=== PATIENT | female | born 1960 | race African-American/Black ===

== ENCOUNTER 2017-01-09 14:37 | Emergency (ER) | payer MEDICARE ==
[2017-01-09 14:42] VITALS: BP 179/70
--- NOTE | 2017-01-09 18:07 | ER Document Report ---
HPI - HPI Patient complains to provider of: right knee pain Onset: Other - 2 weeks Quality of pain: Achy Severity: Severe Pain Level: 4 Context: Patient presents to the emergency department with complaints of right knee hurting. She reports both sides of her knee. patient denies trauma. reports symptoms started 2 weeks ago when she kept visiting her sister in the hospital, [facility]. Denies f/n/v/d. Reports pain achy all the time. Reports hx of diabetes, neuropathy and charcot foot. Associated Symptoms: None Exacerbated by: Denies Relieved by: Denies Similar symptoms previously: No Recently seen / treated by doctor: No - REPRODUCTIVE Reproductive: DENIES: : - DERM Skin Color: Normal Past Medical History - General Information source: Patient Last Menstrual Period: menopause - Social History Smoking Status: Unknown if Ever Smoked Cigarette use (# per day): No Frequency of alcohol use: None Drug Abuse: None Lives with: Family Family History: None Patient has suicidal ideation: No Patient has homicidal ideation: No - Past Medical History Cardiac Medical History: Reports: Hx Hypertension Denies: Hx Heart Attack Pulmonary Medical History: Denies: Hx Asthma, Hx COPD Neurological Medical History: Denies: Hx Cerebrovascular Accident, Hx Seizures Endocrine Medical History: Reports: Hx Diabetes Mellitus Type 1, Hx Diabetes Mellitus Type 2 Renal/ Medical History: Denies: Hx Peritoneal Dialysis Musculoskeltal Medical History: Reports Other - charcot foot Past Surgical History: Reports: Hx Section Vertical Provider Document - CONSTITUTIONAL Agree With Documented VS: Yes Exam Limitations: No Limitations General Appearance: WD/WN, Mild Distress - winces when right knee laterally palpated - INFECTION CONTROL TRAVEL OUTSIDE OF THE [place] IN LAST 30 DAYS: No - HEENT HEENT: Atraumatic, Normocephalic - NECK Neck: Normal Inspection, Supple - RESPIRATORY Respiratory: Breath Sounds Normal O2 Sat by Pulse Oximetry: 98 - CARDIOVASCULAR Cardiovascular: Regular Rate - MUSCULOSKELETAL/EXTREMETIES Musculoskeletal/Extremeties: MAEW, FROM, Tender - right lateral, anterior knee ttp, no obvious deformity, no erythema/no warmth. reports chronic lower leg pain and foot pain due to diabetes and charcot foot Course - Re-evaluation Re-evalutation: 01/09/17 Knee x-rays notes osteoarthritis. Patient updated on x-ray. She verbalized understanding. She was instructed on ibuprofen or Aleve for pain. Follow up with her pcp. She verbalized understanding. Patient was escorted out to her car ambulates without problems. - Vital Signs Vital signs: Temp Pulse Resp BP Pulse Ox 99.2 F 98 18 179/70 H 98 01/09/17 14:41 01/09/17 14:41 01/09/17 14:41 01/09/17 14:41 01/09/17 14:41 - Diagnostic Test Radiology reviewed: Image reviewed, Reports reviewed - EXAM DESCRIPTION: KNEE RIGHT 4 VIEWS COMPLETED DATE/TIME: 01/09/2017 6:43 pm REASON FOR STUDY: pain COMPARISON: None. NUMBER OF VIEWS: Four views. TECHNIQUE: AP, lateral, and both oblique radiographic images acquired of the right knee. LIMITATIONS: None. FINDINGS: MINERALIZATION: Normal. BONES: No acute fracture or dislocation. No worrisome bone lesions. JOINT: Mild tricompartmental osteoarthritis. No significant joint effusion. SOFT TISSUES: Vascular calcifications. No soft tissue swelling. No radio-opaque foreign body. OTHER: No other significant finding. TECHNICAL DOCUMENTATION: JOB ID: [id number]- All Rights Reserved RAD/KNEE RIGHT 4 VIEWS IMPRESSION: MILD TRICOMPARTMENTAL OSTEOARTHRITIS. NO RADIOGRAPHIC EVIDENCE OF ACUTE INJURY Discharge - Discharge Clinical Impression: Right knee pain, Osteoarthritis Condition: Stable Disposition: HOME, SELF-CARE Instructions: Ice & Elevation ([facility]), Osteoarthritis ([facility]), Use of Over-The- Counter Ibuprofen ([facility]) Additional Instructions: *You have been evaluated for right knee pain, osteoarthritis, elevated blood pressure reading *Rest *Follow up with your primary care provider for recheck within one week *Take ibuprofen as indicated *Return to ED for worsening condition, changes, needs Monitor your blood pressure. Your blood pressure was elevated today. This may be because you were anxious, in pain or because you need medication. It is important to follow up with your primary care provider for full evaluation. Forms: Elevated Blood Pressure Referrals: LOCALMD,NO [Primary Care Provider] - Follow up as needed
[2017-01-09] MEDS ORDERED: IBUPROFEN 800 MG TABLET PO ONE (18:08)
== END 2017-01-09 19:20 | disposition home or self-care (01) ==
LOC: ER 14:37
DX: M25.561 Pain in right knee (principal); M17.9 Osteoarthritis of knee, unspecified; E11.9 Type 2 diabetes mellitus without complications; G90.09 Other idiopathic peripheral autonomic neuropathy; I10 Essential (primary) hypertension; G89.29 Other chronic pain; M79.673 Pain in unspecified foot
CPT/HCPCS: 99283; 73564; A9270

== ENCOUNTER 2017-11-26 11:09 | Emergency (ER) | payer MEDICARE ==
[2017-11-26 11:28] VITALS: BP 172/73
--- NOTE | 2017-11-26 11:58 | ER Document Report ---
ED General - General Chief Complaint: Puncture Wound to Foot Stated Complaint: RIGHT FOOT INJURY Time Seen by Provider: 11/26/17 11:57 Mode of Arrival: Ambulatory Information source: Patient Notes: 57-year-old female diabetic presents with a puncture wound to her foot on the right side with the nail was kobe proximally 4 days ago. Patient denies any other pain notes her family members made her come in today tetanus is not up-to- date TRAVEL OUTSIDE OF THE [place] IN LAST 30 DAYS: No - HPI Onset: Last week Onset/Duration: Persistent Quality of pain: No pain Severity: Mild Pain Level: Denies Associated symptoms: Other Exacerbated by: Denies Relieved by: Denies Similar symptoms previously: No Recently seen / treated by doctor: No - Related Data Allergies/Adverse Reactions: No Known Allergies Allergy (Verified 11/26/17 11:10) Past Medical History - Social History Smoking Status: Never Smoker Cigarette use (# per day): No Chew tobacco use (# tins/day): No Smoking Education Provided: No Frequency of alcohol use: None Drug Abuse: None Family History: None Patient has suicidal ideation: No Patient has homicidal ideation: No - Past Medical History Cardiac Medical History: Reports: Hx Hypertension Denies: Hx Heart Attack Pulmonary Medical History: Denies: Hx Asthma, Hx COPD Neurological Medical History: Denies: Hx Cerebrovascular Accident, Hx Seizures Endocrine Medical History: Reports: Hx Diabetes Mellitus Type 1, Hx Diabetes Mellitus Type 2 Renal/ Medical History: Denies: Hx Peritoneal Dialysis Past Surgical History: Reports: Hx Section - x4 Review of Systems - Review of Systems Notes: REVIEW OF SYSTEMS: CONSTITUTIONAL : Denies fever, chills, or sweats. Denies recent illness. EENT: Denies eye, ear, throat, or mouth pain or symptoms. Denies nasal or sinus congestion or discharge. Denies throat, tongue, or mouth swelling or difficulty swallowing. CARDIOVASCULAR: Denies chest pain. Denies palpitations or racing or irregular heart beat. Denies ankle edema. RESPIRATORY: Denies cough, cold, or chest congestion. Denies shortness of breath, difficulty breathing, or wheezing. GASTROINTESTINAL: Denies abdominal pain or distention. Denies nausea, vomiting , or diarrhea. Denies blood in vomitus, stools, or per rectum. Denies black, tarry stools. Denies constipation. GENITOURINARY: Denies difficulty urinating, painful urination, burning, frequency, blood in urine, or discharge. FEMALE GENITOURINARY: Denies vaginal bleeding, heavy or abnormal periods, irregular periods. Denies vaginal discharge or odor. MUSCULOSKELETAL: Denies back or neck pain or stiffness. Denies joint pain or swelling. SKIN: Puncture wound right foot HEMATOLOGIC : Denies easy bruising or bleeding. LYMPHATIC: Denies swollen, enlarged glands. NEUROLOGICAL: Denies confusion or altered mental status. Denies passing out or loss of consciousness. Denies dizziness or lightheadedness. Denies headache. Denies weakness or paralysis or loss of use of either side. Denies problems with gait or speech. Denies sensory loss, numbness, or tingling. Denies seizures. PSYCHIATRIC: Denies anxiety or stress. Denies depression, suicidal ideation, or homicidal ideation. ALL OTHER SYSTEMS REVIEWED AND NEGATIVE. PHYSICAL EXAMINATION: GENERAL: Well-appearing, well-nourished and in no acute distress. HEAD: Atraumatic, normocephalic. EYES: Pupils equal round and reactive to light, extraocular movements intact, conjunctiva are normal. ENT: Nares patent, oropharynx clear without exudates. Moist mucous membranes. NECK: Normal range of motion, supple without lymphadenopathy LUNGS: Breath sounds clear to auscultation bilaterally and equal. No wheezes rales or rhonchi. HEART: Regular rate and rhythm without murmurs ABDOMEN: Soft, nontender, nondistended abdomen. No guarding, no rebound. No masses appreciated. Female : deferred Musculoskeletal: Normal range of motion, no pitting or edema. No cyanosis. NEUROLOGICAL: Cranial nerves grossly intact. Normal speech, normal gait. Normal sensory, motor exams PSYCH: Normal mood, normal affect. SKIN: Healed puncture wound of the right sole midfoot nontender no drainage no erythema Dictation was performed using [employer] voice recognition software Physical Exam - Vital signs Vitals: Temp Pulse Resp BP Pulse Ox 98.8 F 81 19 172/73 H 98 11/26/17 11:27 11/26/17 11:27 11/26/17 11:27 11/26/17 11:27 11/26/17 11:27 Course - Re-evaluation Re-evalutation: 11/26/17 15:45 The puncture occurred approximately 4 days ago, there is no signs of infection at this time, her tetanus will be updated, I have very low suspicion for infectious process given that it looks well and is healing well but given that she is a diabetic prophylactic antibiotics have been started Patient will be given very strict return precautions she states she understands and will return imaging is not appropriate at this time After performing a Medical Screening Examination, I estimate there is LOW risk for OPEN FRACTURE, COMPARTMENT SYNDROME, TENDON RUPTURE, ACUTE NEUROVASCULAR INJURY, or RETAINED FOREIGN BODY, thus I consider the discharge disposition reasonable. Also, there is no evidence or peritonitis, sepsis, or toxicity. I have reevaluated this patient multiple times and no significant life threatening changes are noted. The patient and I have discussed the diagnosis and risks, and we agree with discharging home with close follow-up with the understanding that symptoms and presentations can change. We also discussed returning to the Emergency Department immediately if new or worsening symptoms occur. We have discussed the symptoms which are most concerning (e.g., changing or worsening pain, fever, numbness, weakness, cool or painful digits) that necessitate immediate return. - Vital Signs Vital signs: Temp Pulse Resp BP Pulse Ox 98.8 F 81 19 172/73 H 98 11/26/17 11:27 11/26/17 11:27 11/26/17 11:27 11/26/17 11:27 11/26/17 11:27 Discharge - Discharge Clinical Impression: Diabetic foot infection Nail wound of foot Qualifiers: Encounter type: initial encounter Laterality: right Qualified Code(s): S91.331A - Puncture wound without foreign body, right foot, initial encounter HTN (hypertension) Qualifiers: Hypertension type: unspecified Qualified Code(s): I10 - Essential (primary) hypertension Condition: Stable Disposition: HOME, SELF-CARE Instructions: Laceration Care ([facility]), Tetanus Immunization Given ([facility]) Additional Instructions: Please keep a very close eye on the wound, if symptoms are worsening you must return immediately for further care Prescriptions: Ciprofloxacin HCl [Cipro 500 mg Tablet] 500 mg PO BID #20 tablet Referrals: BENNETT SUE MD [Primary Care Provider] - Follow up as needed
[2017-11-26] MEDS ORDERED: DIPH/PERTUSS(ACELL)/TETANUS VAC/PF 0.5 ML SYR (>=10YO) IM ONE (12:04)
== END 2017-11-26 12:17 | disposition home or self-care (01) ==
LOC: ER 11:09
DX: S91.331A Puncture wound without foreign body, right foot, initial encounter (principal); W45.0XXA Nail entering through skin, initial encounter; E11.628 Type 2 diabetes mellitus with other skin complications; L08.9 Local infection of the skin and subcutaneous tissue, unspecified; I10 Essential (primary) hypertension; Z23 Encounter for immunization
CPT/HCPCS: 90471; 90715; 99283

== ENCOUNTER 2018-04-25 12:54 | Emergency (ER) | payer MEDICARE ==
[2018-04-25 13:01] VITALS: BP 187/85
--- NOTE | 2018-04-25 13:33 | ER Document Report ---
ED Extremity Problem, Lower - General Chief Complaint: Foot Pain Stated Complaint: FOOT PAIN Time Seen by Provider: 04/25/18 13:23 Mode of Arrival: Ambulatory Information source: Patient Notes: Chief complaint: Right foot pain History of complain:( obtained from----patient) 58 years old female with history of callus over the right foot for a period of one year, presents today with pain. She was on pain medication but she stopped taking it 3 months ago. Because she does not want to be addicted to it. The pain is increasing in intensity particularly on walking. She also diabetic and wear diabetic shoe on and off not continuously. Denies any fever chills or other constitutional symptoms Onset: Gradual Duration: One year Severity: Moderate Quality: Sharp Context: Diabetic foot Exacerbating factor and relieving factors: REVIEW OF SYSTEMS: CONSTITUTIONAL : Denies fever, chills, or sweats. Denies recent illness. EENT: Denies eye, ear, throat, or mouth pain or symptoms. Denies nasal or sinus congestion or discharge. Denies throat, tongue, or mouth swelling or difficulty swallowing. CARDIOVASCULAR: Denies chest pain. Denies palpitations or racing or irregular heart beat. Denies ankle edema. RESPIRATORY: Denies cough, cold, or chest congestion. Denies shortness of breath, difficulty breathing, or wheezing. GASTROINTESTINAL: Denies distention. Denies nausea, vomiting, or diarrhea. Denies blood in vomitus, stools, or per rectum. Denies black, tarry stools. Denies constipation. GENITOURINARY: Denies difficulty urinating, painful urination, burning, frequency, blood in urine, or discharge. FEMALE GENITOURINARY: Denies vaginal bleeding, heavy or abnormal periods, irregular periods. Denies vaginal discharge or odor. MUSCULOSKELETAL: Denies back or neck pain or stiffness. Denies joint pain or swelling. SKIN: Denies rash, lesions or sores. HEMATOLOGIC : Denies easy bruising or bleeding. LYMPHATIC: Denies swollen, enlarged glands. NEUROLOGICAL: Denies confusion or altered mental status. Denies passing out or loss of consciousness. Denies dizziness or lightheadedness. Denies headache. Denies weakness or paralysis or loss of use of either side. Denies problems with gait or speech. Denies sensory loss, numbness, or tingling. Denies seizures. PSYCHIATRIC: Denies anxiety or stress. Denies depression, suicidal ideation, or homicidal ideation. ALL OTHER SYSTEMS REVIEWED AND NEGATIVE. PHYSICAL EXAMINATION: GENERAL: Well-appearing, well-nourished and in no acute distress. HEAD: Atraumatic, normocephalic. EYES: Pupils equal round and reactive to light, extraocular movements intact, conjunctiva are normal. ENT: Nares patent, oropharynx clear without exudates. Moist mucous membranes. NECK: Normal range of motion, supple without lymphadenopathy LUNGS: Breath sounds clear to auscultation bilaterally and equal. No wheezes rales or rhonchi. HEART: Regular rate and rhythm without murmurs Musculoskeletal: Right foot middle of the sore-has a 3 x 4 cm blackish discoloration with swelling which is hard and tender to touch. No fluctuant mass. It is a callus NEUROLOGICAL: Cranial nerves grossly intact. Normal speech, normal gait. Normal sensory, motor exams PSYCH: Normal mood, normal affect. SKIN: Warm, Dry, normal turgor, no rashes or lesions noted. Dictation was performed using [employer] voice recognition software TRAVEL OUTSIDE OF THE [place] IN LAST 30 DAYS: No - HPI Notes: Dictated - Related Data Allergies/Adverse Reactions: No Known Allergies Allergy (Verified 04/25/18 13:19) Past Medical History - Social History Smoking Status: Current Every Day Smoker Chew tobacco use (# tins/day): No Frequency of alcohol use: None Drug Abuse: None Family History: None, Reviewed & Not Pertinent Patient has suicidal ideation: No Patient has homicidal ideation: No - Past Medical History Cardiac Medical History: Reports: Hx Hypertension Denies: Hx Heart Attack Pulmonary Medical History: Denies: Hx Asthma, Hx COPD Neurological Medical History: Denies: Hx Cerebrovascular Accident, Hx Seizures Endocrine Medical History: Reports: Hx Diabetes Mellitus Type 1, Hx Diabetes Mellitus Type 2 Renal/ Medical History: Denies: Hx Peritoneal Dialysis Past Surgical History: Reports: Hx Section - x4 Review of Systems - Review of Systems Notes: Dictated Physical Exam - Vital signs Vitals: Temp Pulse Resp BP Pulse Ox 98.8 F 102 H 16 187/85 H 99 04/25/18 12:59 04/25/18 12:59 04/25/18 12:59 04/25/18 12:59 04/25/18 12:59 - Notes Notes: Dictated Course - Re-evaluation Re-evalutation: 04/25/18 13:31 Patient was explained this lesion has to be removed by a foot doctor. - Vital Signs Vital signs: Temp Pulse Resp BP Pulse Ox 98.8 F 102 H 16 187/85 H 99 04/25/18 12:59 04/25/18 12:59 04/25/18 12:59 04/25/18 12:59 04/25/18 12:59 Discharge - Discharge Clinical Impression: Callus of foot Condition: Fair Disposition: HOME, SELF-CARE Instructions: Pain Management Prescriptions: Diclofenac Sodium [Diclofenac Sodium ER] 100 mg PO DAILY #20 tab.er.24h Referrals: BENNETT SUE MD [Primary Care Provider] - Follow up as needed
== END 2018-04-25 13:45 | disposition home or self-care (01) ==
LOC: ER 12:54
DX: L84 Corns and callosities (principal); M79.671 Pain in right foot; E11.9 Type 2 diabetes mellitus without complications; F17.200 Nicotine dependence, unspecified, uncomplicated; I10 Essential (primary) hypertension
CPT/HCPCS: 99283

== ENCOUNTER → 2018-07-02 | Outpatient (CLI) | payer MEDICARE ==
--- NOTE | 2018-07-04 09:11 | XCELERA REPORT ---
[address] [address] Lower Extremity Arterial Evaluation Name: ALMAZ ALVARADO Age: 58 yrs Gender: Female : 1960 Patient Status: Outpatient Patient Location: [facility] Study Date: 07/02/2018 01:30 PM Procedure: A color flow and duplex scan of the lower extremity arteries was performed bilaterally with velocity and waveform anaylsis. Ankle brachial indicies performed. Reason For Study: ULCER Ordering Physician: CYNTHIA INXON Performed By: Kanika Solitario Measurements and Calculations Right Left POWDER OPERATOR PSV 186.6 149.3 cm/sec Prox PFA PSV -105.3 -108.1cm/sec Prox Pop A PSV 148.5 113.1 cm/sec Dist LUIS ENRIQUE PSV 138.3 139.0 cm/sec Prox ARCHITECT INTERN PSV 56.2 cm/sec Mid ARCHITECT INTERN PSV 38.8 cm/sec Dist ARCHITECT INTERN PSV 65.6 cm/sec Dist Esequiel A 65.6 cm/sec PSV Abelardo Pedis PSV 237.6 150.8 cm/sec Right Side Arterial Evaluation Normal velocity and triphasic waveforms noted from the Common Femoral artery to the Popliteal. Biphasic with increased velocity, spectral broadening,ration of 1.6 in the Anterior tibial. Occluded Posterior Tibial artery. . 0-19 % stenosis in the Anterior Tibial,Occluded Posterior Tibial artery. . Ankle Brachial index 0.93. With findings significant for atherosclerosis, mild hemodynamic changes, at rest. Left Side Arterial Evaluation Normal velocity and triphasic waveforms noted in the Common Femoral artery. Biphasic in Femoral. to the infrageniculate vessels. 0-19% stenosis at the Femoral artery. Ankle Brachial index is 1.00, in Dorsalis Pedis. Interpretation Summary Mild hemodynamically significant lesions in the bilateral lower extremities, on duplex imaging, at rest. With findings significant for atherosclerosis, especially on the right, mild hemodynamic changes, at rest. : CYNTHIA NIXON > Luis Hart
== END ==
LOC: SP 12:43
PROVIDERS: ATTEND Preventive Medicine Undersea and Hyperbaric Medicine
DX: L97.422 Non-pressure chronic ulcer of left heel and midfoot with fat layer exposed (principal); L97.412 Non-pressure chronic ulcer of right heel and midfoot with fat layer exposed
CPT/HCPCS: 93922; 93925

== ENCOUNTER 2018-08-26 07:37 | Emergency (ER) | payer MEDICARE ==
--- NOTE | 2018-08-26 07:59 | ER Document Report ---
ED General - General Chief Complaint: Abdominal Pain Stated Complaint: ABDOMINAL PAIN Time Seen by Provider: 08/26/18 07:58 Notes: Patient is a 58-year-old female that presents to the emergency department for chief complaint of headache and epigastric pain. Patient reports that this started yesterday, is a left-sided headache, with associated nausea but no vomiting. 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 She has had associated epigastric pain, she states this typically comes on when she has a headache. She states it is not quite a migraine. She currently rates her headache as an 8 out of 10, on the left side of her head describes as an aching throbbing sensation. Denies any head injury. She reports that she has had loss of vision in her left eye for approximately 1 year without recent changes. Denies any numbnes, tingling or weakness in her extremities. Past Medical History: Diabetes mellitus, hypertension, hyperlipidemia Past Surgical History: Foot surgery, eye surgery Social History: Denies tobacco, alcohol or drug use Family History: Reviewed and noncontributory for presenting illness Allergies: Reviewed, see documented allergy list. REVIEW OF SYSTEMS: Other than noted above, the 12 point review of systems was reviewed with the patient and were negative, all pertinent findings are included in the HPI. PHYSICAL EXAMINATION: Vital signs reviewed, nursing noted reviewed. GENERAL: Well-appearing, well-nourished and in no acute distress. HEAD: Atraumatic, normocephalic. Non-tender, no pulsatile lesion or tendernes over the temporal arteries. EYES: Eyes appear normal, extraocular movements intact, sclera anicteric, conjunctiva are normal. PERRLA, on fundoscopic exam, patient does have lack of red reflex on the left. Vision decreased with the Left eye (chronic per patient) ENT: nares patent, oropharynx clear without exudates. Moist mucous membranes. NECK: Normal range of motion, supple without lymphadenopathy LUNGS: Breath sounds clear to auscultation bilaterally and equal. No wheezes rales or rhonchi. HEART: Regular rate and rhythm without murmurs ABDOMEN: Soft, mild epigastric tenderness with palpation, normoactive bowel sounds. No rebound, guarding, or rigidity. No masses appreciated. EXTREMITIES: Nontender, good range of motion, trace bilateral pedal edema. NEUROLOGICAL: No focal neurological deficits. Moves all extremities spontaneously Motor and sensory grossly intact on exam. PSYCH: Flat affect, poor eye contact, but does answer questions appropriately SKIN: Warm, Dry, normal turgor, no rashes or lesions noted on exposed skin TRAVEL OUTSIDE OF THE [place] IN LAST 30 DAYS: No - Related Data Allergies/Adverse Reactions: No Known Allergies Allergy (Verified 08/26/18 08:14) Past Medical History - Social History Smoking Status: Never Smoker Family History: None, Reviewed & Not Pertinent - Past Medical History Cardiac Medical History: Reports: Hx Hypertension Denies: Hx Heart Attack Pulmonary Medical History: Denies: Hx Asthma, Hx COPD Neurological Medical History: Denies: Hx Cerebrovascular Accident, Hx Seizures Endocrine Medical History: Reports: Hx Diabetes Mellitus Type 1, Hx Diabetes Mellitus Type 2 Renal/ Medical History: Denies: Hx Peritoneal Dialysis Past Surgical History: Reports: Hx Section - x4 Physical Exam - Vital signs Vitals: Temp Pulse Resp BP Pulse Ox 97.3 F 74 18 167/73 H 100 08/26/18 07:42 08/26/18 07:42 08/26/18 07:42 08/26/18 07:42 08/26/18 07:42 Course - Re-evaluation Re-evalutation: Patient seen and examined vital signs reviewed. Laboratory data and imaging were ordered as appropriate for the patient's presenting symptoms and complaint, with consideration of any critical or life threatening conditions that may be associated with their obtained history and exam as noted above. Patient was treated with IVF and reglan and benadryl Results were reviewed when available and demonstrated CT head demonstrated Left vitreous hemorrhage, patient does have history of bilateral victrectomy, I discussed this with the patients Retinal surgeon's office who confirmed that the patient has had significant vitreal hemorrhage due to her diabetic retinopathy and that has been a chronic finding for her, she however has not follow-up with them in about 2 years. The patient denies having any pain in her eye and as noted has had loss of vision in her left eye for about 1 year. The rest of her work-up revealed a mildly elevated ESR and CRP, which does not meet levels concerning for temporal arteritis, and clinically the patient does not have symptoms consistent with that. The patient was re-evaluated and was much improved, symptoms completely resolved. Evaluation was most consistent with headache, nonspecific, patient does have history of migraines and has had similar headaches in the past, I advised she follow-up with her retinal surgeon and with her PCP. She was agreeable. Results were discussed with the patient at this point, after careful consideration I feel that that patient can be discharged from the emergency department, the patient was educated treatments and reasons to return to the emergency department based on their presumed diagnosis as noted above, they were advised to followup with a primary care physician in 2-3 days. Patient was agreeable to plan of care. *Note is created using voice recognition software and may contain spelling, syntax or grammatical errors. Laboratory 08/26/18 08/26/18 08/26/18 08:50 08:50 08:50 WBC 7.5 RBC 4.52 Hgb 12.4 Hct 37.5 MCV 83 MCH 27.3 MCHC 32.9 RDW 13.1 Plt Count 335 Seg Neutrophils % 79.4 H Lymphocytes % 15.1 Monocytes % 3.7 Eosinophils % 0.7 Basophils % 1.1 Absolute Neutrophils 6.0 Absolute Lymphocytes 1.1 Absolute Monocytes 0.3 Absolute Eosinophils 0.1 Absolute Basophils 0.1 ESR 54 H Sodium 141.7 Potassium 3.8 Chloride 101 Carbon Dioxide 31 H Anion Gap 10 BUN 15 Creatinine 0.76 Est GFR ( Amer) > 60 Est GFR (Non-Af Amer) > 60 Glucose 248 H Calcium 9.6 Total Bilirubin 0.6 Direct Bilirubin 0.3 Neonat Total Bilirubin Not Reportable Neonat Direct Bilirubin Not Reportable Neonat Indirect Bili Not Reportable AST 62 H ALT 104 H Alkaline Phosphatase 119 Troponin I < 0.012 C-Reactive Protein 16.9 H Total Protein 8.5 H Albumin 4.3 Lipase 30.0 Urine Color Urine Appearance Urine pH Ur Specific [place] Urine Protein Urine Glucose (UA) Urine Ketones Urine Blood Urine Nitrite Urine Bilirubin Urine Urobilinogen Ur Leukocyte Esterase Urine WBC (Auto) Urine Bacteria (Auto) Squamous Epi Cells Auto Urine Mucus (Auto) Urine Ascorbic Acid 08/26/18 09:50 WBC RBC Hgb Hct MCV MCH MCHC RDW Plt Count Seg Neutrophils % Lymphocytes % Monocytes % Eosinophils % Basophils % Absolute Neutrophils Absolute Lymphocytes Absolute Monocytes Absolute Eosinophils Absolute Basophils ESR Sodium Potassium Chloride Carbon Dioxide Anion Gap BUN Creatinine Est GFR ( Amer) Est GFR (Non-Af Amer) Glucose Calcium Total Bilirubin Direct Bilirubin Neonat Total Bilirubin Neonat Direct Bilirubin Neonat Indirect Bili AST ALT Alkaline Phosphatase Troponin I C-Reactive Protein Total Protein Albumin Lipase Urine Color COLORLESS Urine Appearance CLEAR Urine pH 6.0 Ur Specific [place] 1.005 Urine Protein NEGATIVE Urine Glucose (UA) >=500 H Urine Ketones NEGATIVE Urine Blood NEGATIVE Urine Nitrite NEGATIVE Urine Bilirubin NEGATIVE Urine Urobilinogen NEGATIVE Ur Leukocyte Esterase NEGATIVE Urine WBC (Auto) 1 Urine Bacteria (Auto) 1+ Squamous Epi Cells Auto 3 Urine Mucus (Auto) RARE Urine Ascorbic Acid NEGATIVE Head CT 08/26/18 08:15 IMPRESSION: No CT evidence of acute large territory ischemic change, acute intracranial hemorrhage, mass effect, or midline shift. 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 Recent left eye surgery. Findings discussed with the emergency room attending physician EVIDENCE OF ACUTE STROKE: NO. - Vital Signs Vital signs: Temp Pulse Resp BP Pulse Ox 98.4 F 74 16 142/70 H 100 08/26/18 12:50 08/26/18 12:50 08/26/18 12:50 08/26/18 12:50 08/26/18 12:50 - Laboratory Result Diagrams: 08/26/18 08:50 08/26/18 08:50 Laboratory results interpreted by me: 08/26/18 08/26/18 08/26/18 08:50 08:50 09:50 Seg Neutrophils % 79.4 H ESR 54 H Carbon Dioxide 31 H Glucose 248 H AST 62 H ALT 104 H C-Reactive Protein 16.9 H Total Protein 8.5 H Urine Glucose (UA) >=500 H - EKG Interpretation by Me Additional EKG results interpreted by me: EKG demonstrates sinus rhythm with ventricular rate of 73 bpm, normal axis, QTC 499 ms, T wave inversion in leads I and aVL, no prior for comparison. Discharge - Discharge Clinical Impression: Epigastric abdominal pain Headache Qualifiers: Headache type: unspecified Headache chronicity pattern: acute headache Intractability: not intractable Qualified Code(s): R51 - Headache Condition: Stable Disposition: HOME, SELF-CARE Instructions: Abdominal Pain ([facility]), Headache ([facility]) Additional Instructions: Please follow-up with your retinal surgeon, call for an appointment, otherwise you can also follow-up with your primary care physician, if your symptoms return or worsen, do not hesitate to return to the emergency department for further evaluation and management. Referrals: AMARA SABA MD [Primary Care Provider] - Follow up in 3-5 days
[2018-08-26] MEDS ORDERED: NORMAL SALINE 1000 ML 1,000 ML IV ONE (08:14)
[2018-08-26] MEDS ORDERED: METOCLOPRAMIDE HCL INJ/PF 10 MG/2 ML SDV IV ONE (08:15)
[2018-08-26] MEDS ORDERED: DIPHENHYDRAMINE HCL 50 MG/ML VIAL IV ONE (08:16)
[2018-08-26 09:13] LABS: ABSOLUTE BASOPHILS # (AUTO) 0.1 10^3/uL (0.0-0.2); ABSOLUTE EOSINOPHILS # (AUTO) 0.1 10^3/uL (0.0-0.6); ABSOLUTE LYMPHOCYTES (AUTO) 1.1 10^3/uL (0.5-4.7); ABSOLUTE MONOCYTES (AUTO) 0.3 10^3/uL (0.1-1.4); BASOPHILS % (AUTO) 1.1 % (0-2); EOSINOPHILS % (AUTO) 0.7 % (0-6); HEMATOCRIT 37.5 % (36.0-47.0); HEMOGLOBIN 12.4 g/dL (12.0-15.5); LYMPHOCYTES % (AUTO) 15.1 % (13-45); MEAN CORPUSCULAR HEMOGLOBIN 27.3 pg (27.0-33.4); MEAN CORPUSCULAR HGB CONC 32.9 g/dL (32.0-36.0); MEAN CORPUSCULAR VOLUME 83 fl (80-97); MONOCYTES % (AUTO) 3.7 % (3-13); PLATELET COUNT 335 10^3/uL (150-450); RED BLOOD COUNT 4.52 10^6/uL (3.72-5.28); RED CELL DISTRIBUTION WIDTH 13.1 % (11.5-14.0); SEGMENTED NEUTROPHILS % (AUTO) 79.4 % (42-78); TOTAL CELLS COUNTED % (AUTO) 100 %; WHITE BLOOD COUNT 7.5 10^3/uL (4.0-10.5)
[2018-08-26 09:36] LABS: ALANINE AMINOTRANSFERASE 104 U/L (9-52); ALBUMIN 4.3 g/dL (3.5-5.0); ALKALINE PHOSPHATASE 119 U/L (38-126); ANION GAP 10 (5-19); ASPARTATE AMINO TRANSFERASE 62 U/L (14-36); BILIRUBIN,DIRECT 0.3 mg/dL (0.0-0.4); BILIRUBIN,TOTAL 0.6 mg/dL (0.2-1.3); BLOOD UREA NITROGEN 15 mg/dL (7-20); C-REACTIVE PROTEIN 16.9 mg/L (<10.0); CALCIUM 9.6 mg/dL (8.4-10.2); CARBON DIOXIDE 31 mmol/L (22-30); CHLORIDE 101 mmol/L (98-107); GLUCOSE 248 mg/dL (75-110); POTASSIUM 3.8 mmol/L (3.6-5.0); SODIUM 141.7 mmol/L (137-145); TOTAL PROTEIN 8.5 g/dL (6.3-8.2)
--- NOTE | 2018-08-26 09:48 | RADIOLOGY REPORT (SQ) ---
EXAM DESCRIPTION: CT HEAD WITHOUT COMPLETED DATE/TIME: 08/26/2018 9:26 am REASON FOR STUDY: headache severe left-sided headache COMPARISON: None. TECHNIQUE: Axial images acquired through the brain without intravenous contrast. Images reviewed wi th bone, brain and subdural windows. Additional sagittal and coronal reconstructions were generated. Images stored on PACS. All CT scanners at this facility use dose modulation, iterative reconstruction, and/or weight based d osing when appropriate to reduce radiation dose to as low as reasonably achievable (ALARA). [facility]: Dose Right [facility]: CareDose [facility]: Dose Right [facility]: Teradose 4D [facility]: [employer] RADIATION DOSE: CT Rad equipment meets quality standard of care and radiation dose reduction techniq ues were employed. CTDIvol: 53.2 mGy. DLP: 991 mGy-cm. mGy. LIMITATIONS: None. FINDINGS: VENTRICLES: Normal size and contour. CEREBRUM: Old lacunar infarcts are present in the left thalamus and right basal ganglia. No CT evidence of acute ischemic change, acute intracranial hemorrhage, mass effect, or midline shift . CEREBELLUM: No masses. No hemorrhage. No alteration of density. No evidence for acute infarction. EXTRAAXIAL SPACES: No fluid collections. No masses. ORBITS AND GLOBE: No intra- or extraconal masses. Normal right globe. Left globe vitreous hemorrhag e with Hounsfield units of 83. Small air bubble along the lateral left sclera axial image 10. These findings were discussed with Dr. Ady Walker in the emergency room. Patient has had recent left eye surgery CALVARIUM: No fracture. PARANASAL SINUSES: No fluid or mucosal thickening. SOFT TISSUES: No mass or hematoma. OTHER: No other significant finding. IMPRESSION: No CT evidence of acute large territory ischemic change, acute intracranial hemorrhage, mass effect, or midline shift. 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 Recent left eye surgery. Findings discussed with the emergency room attending physician EVIDENCE OF ACUTE STROKE: NO. COMMENT: Quality ID # [id number]: Final reports with documentation of one or more dose reduction techniques (e.g., Automated exposure control, adjustment of the mA and/or kV according to patient size, use of iterative reconstruction technique) TECHNICAL DOCUMENTATION: JOB ID: [id number] All Rights Reserved Reading location - IP/workstation name: [email or web address]
[2018-08-26 09:59] LABS: ERYTHROCYTE SEDIMENTATION RATE 54 mm/hr (0-30)
[2018-08-26 10:44] LABS: APPEARANCE,URINE CLEAR; BILIRUBIN,URINE NEGATIVE (NEGATIVE); COLOR,URINE COLORLESS; GLUCOSE, URINE >=500 mg/dL (NEGATIVE); KETONES,URINE NEGATIVE (NEGATIVE); LEUKOCYTE ESTERASE,URINE NEGATIVE (NEGATIVE); NITRITE,URINE NEGATIVE (NEGATIVE); PROTEIN,URINE NEGATIVE (NEGATIVE); URINE SPECIFIC GRAVITY 1.005; UROBILINOGEN,URINE NEGATIVE mg/dL (<2.0)
[2018-08-26 12:51] VITALS: BP 142/70
--- NOTE | 2018-08-26 13:32 | EKG REPORT ---
SEVERITY:- ABNORMAL ECG - SINUS RHYTHM LVH WITH SECONDARY REPOLARIZATION ABNORMALITY BORDERLINE PROLONGED QT INTERVAL : Confirmed by: Hiram Bar MD 26-Aug-2018 13:31:30
== END 2018-08-26 12:53 | disposition home or self-care (01) ==
LOC: ER 07:37
DX: R10.13 Epigastric pain (principal); R51 Headache; R11.0 Nausea; E11.9 Type 2 diabetes mellitus without complications; I10 Essential (primary) hypertension; E78.00 Pure hypercholesterolemia, unspecified
CPT/HCPCS: 93005; 99285; 96361; 96374; 96375; 36415; 83690; 85025; 85652; 86140; 80053; 81001; 84484; 70450; 93010; J1200; J2765; J7030

== ENCOUNTER 2018-12-28 22:40 | Emergency (ER) | payer MEDICARE, MEDICAID ==
[2018-12-29 01:30] LABS: ALANINE AMINOTRANSFERASE 24 U/L (9-52); ALKALINE PHOSPHATASE 106 U/L (38-126); ANION GAP 10 (5-19); ASPARTATE AMINO TRANSFERASE 19 U/L (14-36); BILIRUBIN,DIRECT 0.3 mg/dL (0.0-0.4); BILIRUBIN,TOTAL 0.8 mg/dL (0.2-1.3); BLOOD UREA NITROGEN 21 mg/dL (7-20); CALCIUM 10.2 mg/dL (8.4-10.2); CARBON DIOXIDE 26 mmol/L (22-30); CHLORIDE 105 mmol/L (98-107); CREATINE KINASE 101 U/L (30-135); GLUCOSE 214 mg/dL (75-110); POTASSIUM 4.1 mmol/L (3.6-5.0); SODIUM 141.1 mmol/L (137-145); TOTAL PROTEIN 7.5 g/dL (6.3-8.2)
[2018-12-29] MEDS ORDERED: CYCLOBENZAPRINE HCL 10 MG TABLET PO ONE (01:51)
[2018-12-29] MEDS ORDERED: KETOROLAC TROMETHAMINE 60 MG/2 ML SDV IM ONE (01:51)
--- NOTE | 2018-12-29 03:00 | ER Document Report ---
ED General - General Chief Complaint: Tremor Stated Complaint: MUSCLE SPASMS Time Seen by Provider: 12/29/18 00:42 Primary Care Provider: AMARA SABA MD [Primary Care Provider] - Follow up as needed Notes: Patient is a 58-year-old female with a past medical history of hypertension, hyperlipidemia, diabetes, peripheral neuropathy, presents complaining of muscle spasms in her chest and back that have been ongoing for the past 4 days. Patient states that she chronically has spasms in her chest but that they are not usually this intense and they do not usually radiate into her back. States that her symptoms started gradually, have been relatively unchanged since onset. Characterized as being severe. She has not tried nothing to relieve her discomfort. Moving worsens her symptoms. She has not seen her primary care doctor regarding today's concerns. Denies shortness of breath, nausea, vomiting or radiation of the pain into her arms or jaw. Denies any cardiac history. TRAVEL OUTSIDE OF THE [place] IN LAST 30 DAYS: No - Related Data Allergies/Adverse Reactions: No Known Allergies Allergy (Verified 08/26/18 08:14) Past Medical History - General Information source: Patient - Social History Smoking Status: Never Smoker Frequency of alcohol use: None Drug Abuse: None Lives with: Family Family History: None, Reviewed & Not Pertinent Patient has suicidal ideation: No Patient has homicidal ideation: No - Past Medical History Cardiac Medical History: Reports: Hx Hypercholesterolemia, Hx Hypertension Denies: Hx Heart Attack Pulmonary Medical History: Denies: Hx Asthma, Hx COPD Neurological Medical History: Denies: Hx Cerebrovascular Accident, Hx Seizures Endocrine Medical History: Reports: Hx Diabetes Mellitus Type 1, Hx Diabetes Mellitus Type 2 Renal/ Medical History: Denies: Hx Peritoneal Dialysis Musculoskeletal Medical History: Reports Hx Arthritis - Osteo Past Surgical History: Reports: Hx Section - x4, Hx Orthopedic Surgery - foot Review of Systems - Review of Systems Notes: Constitutional: Negative for fever. HENT: Negative for sore throat. Eyes: Negative for visual changes. Cardiovascular: Positive for chest pain. Respiratory: Negative for shortness of breath. Gastrointestinal: Negative for abdominal pain, vomiting or diarrhea. Genitourinary: Negative for dysuria. Musculoskeletal: Positive for mid and upper back pain Skin: Negative for rash. Neurological: Negative for headaches, weakness or numbness. 10 point ROS negative except as marked above and in HPI. Physical Exam - Vital signs Vitals: Temp Pulse Resp BP Pulse Ox 98.9 F 96 26 H 129/83 H 95 12/28/18 22:51 12/28/18 22:51 12/28/18 22:51 12/28/18 22:51 12/28/18 22:51 Interpretation: Tachypneic Notes: PHYSICAL EXAMINATION: GENERAL: Resting in bed comfortably in no apparent distress HEAD: Atraumatic, normocephalic. EYES: Pupils equal round and reactive to light, extraocular movements intact, sclera anicteric, conjunctiva are normal. ENT: nares patent, oropharynx clear without exudates. Moist mucous membranes. NECK: Normal range of motion, supple without lymphadenopathy LUNGS: Breath sounds clear to auscultation bilaterally and equal. No wheezes rales or rhonchi. HEART: Regular rate and rhythm without murmurs ABDOMEN: Soft, nontender, normoactive bowel sounds. No guarding, no rebound. No masses appreciated. Back: No midline spinal tenderness, step-offs or deformities. EXTREMITIES: Normal range of motion, no pitting or edema. No cyanosis. NEUROLOGICAL: No focal neurological deficits. Moves all extremities spontaneously and on command. PSYCH: Normal mood, normal affect. SKIN: Warm, Dry, normal turgor, no rashes or lesions noted. Course - Re-evaluation Re-evalutation: 12/29/18 03:02 Patient presents with a reported complaint of muscle spasms in her chest and upper back that have been ongoing for at least 4 days. The patient reports that she always has the symptoms but that they are more intense than usual. Triggered by movement. Appears to be very muscular skeletal in origin. However given location of pain a cardiac workup was undertaken. Chest x-ray is clear without any evidence of pneumothorax or infiltrate. Troponin negative. EKG without ischemic changes. Wells score 0, do not clinically suspect acute pulmonary mass given characterization of pain. Pulses and blood pressure are symmetric taken by me at the bedside. Do not clinically suspect an aortic dissection again based on history and characterization of the patient's discomfort. Patient is not severely hypertensive. No widened mediastinum on chest x-ray. Do not believe CT of the chest is indicated. - Vital Signs Vital signs: Temp Pulse Resp BP Pulse Ox 98.9 F 96 26 H 129/83 H 95 12/28/18 22:51 12/28/18 22:51 12/28/18 22:51 12/28/18 22:51 12/28/18 22:51 - Laboratory Result Diagrams: 12/29/18 00:55 Laboratory results interpreted by me: 12/29/18 00:55 BUN 21 H Est GFR (Non-Af Amer) 51 L Glucose 214 H - Diagnostic Test Radiology reviewed: Image reviewed, Reports reviewed Radiology results interpreted by me: 12/29/18 03:02 Chest x-ray: No acute infiltrate or pneumothorax - EKG Interpretation by Me Additional EKG results interpreted by me: 12/29/18 03:02 Sinus rhythm, rate 79. No ST elevations or depressions. QTC is 491. Discharge - Discharge Clinical Impression: Back spasm, Chest discomfort Condition: Good Disposition: HOME, SELF-CARE Additional Instructions: The exact cause of your symptoms is uncertain today but does not appear to be from anything immediately life-threatening. Your workup today is otherwise reassuring with normal lab work, normal EKG and normal chest x-ray. I strongly encourage you to follow-up with your primary care doctor within the next 24-48 hours. Please return to emergency department sooner if you have worsening discomfort, fever greater than 100.4 F, shortness of breath, persistent vomiting, or any other symptoms that are worrisome to you. Referrals: MAARA SABA MD [Primary Care Provider] - Follow up as needed
--- NOTE | 2018-12-29 03:05 | RADIOLOGY REPORT (SQ) ---
CLINICAL HISTORY: cp COMPARISON: None. TECHNIQUE: XR CHEST 1 VIEW 12/29/2018 1:39 AM CDT FINDINGS: Cardiac silhouette is normal in size. Lungs are clear without consolidation, atelectasis, mass or edema. There is no pleural effusion. There is no pneumothorax. There are no acute osseous findings. IMPRESSION: Clear lungs.
[2018-12-29 03:28] VITALS: BP 132/67
--- NOTE | 2018-12-29 07:37 | EKG REPORT ---
SEVERITY:- BORDERLINE ECG - SINUS RHYTHM BORDERLINE PROLONGED QT INTERVAL : Confirmed by: Hiram Bar MD 29-Dec-2018 07:36:54
== END 2018-12-29 03:28 | disposition home or self-care (01) ==
LOC: ER 22:40
DX: M62.830 Muscle spasm of back (principal); M62.838 Other muscle spasm; R07.9 Chest pain, unspecified; M54.89 Other dorsalgia; I10 Essential (primary) hypertension; E11.42 Type 2 diabetes mellitus with diabetic polyneuropathy
CPT/HCPCS: 93005; 99284; 36415; 96372; 82550; 83735; 80053; 84484; 71045; 93010; A9270; J1885

== ENCOUNTER 2020-04-05 07:37 | Day surgery (SDC) | payer MEDICARE, MEDICAID ==
[~2020-04-05 07:37] MED LIST: CHONDR SU A NA/HYALUR INTRAOC KIT (SURGICARE) ONE; EPINEPHRINE INJ/PF 1 MG/1 ML AMPULE ONE; KETOROLAC TROMETHAMINE 0.45% 4 DROP/0.4 ML DROPERETTE OD PRN; LIDOCAINE 1% INJ-PF (10 MG/ML) 30 ML SDV ONE
[2020-04-05] MEDS: BESIFLOXACIN HCL 0.6% OPH SUSP 5 ML BOTTLE OD PRN ×4 (08:35→09:50)
[2020-04-05] MEDS: CYCLOPENTOLATE 0.2%/PHENYLEPHRINE 1% OPH SOLN 2 ML OD PRN ×3 (08:35→09:00)
[2020-04-05] MEDS: TROPICAMIDE 1% OPH SOLN 15 ML OD PRN ×3 (08:35→09:00)
[2020-04-05] MEDS: TETRACAINE HCL 0.5% OPH SOLN 4 ML OD PRN ×3 (08:35→09:17)
[2020-04-05] MEDS ORDERED: MIDAZOLAM 2 MG/2 ML INJ ONE (08:58)
[2020-04-05] MEDS: LIDOCAINE 4% INJ/PF (40 MG/ML) 5 ML AMPUL OD PRN ×2 (09:20)
[2020-04-05] MEDS: BUPIVACAINE HCL 0.75% INJ/PF (7.5 MG/1 ML) 10 ML SDV OD PRN ×2 (09:20)
[2020-04-05] MEDS: DORZOLAMIDE HCL 2%/TIMOLOL MALEAT 0.5% OPH SOLN 10 ML OD PRN ×2 (09:50)
--- NOTE | 2020-04-05 11:29 | Operative Report ---
Operative Report-[facility] Operative Report: DATE OF SURGERY: 04/05/2020 PREOPERATIVE DIAGNOSIS: CATARACT, RIGHT EYE. POSTOPERATIVE DIAGNOSIS: CATARACT, RIGHT EYE. PROCEDURE PERFORMED: PHACOEMULSIFICATION WITH POSTERIOR CHAMBER INTRAOCULAR LENS, RIGHT EYE. Intraocular Lens Model : MX60E 24.0 Total Phaco Time: 6 CDE SURGEON: MARLA DUONG MD ANESTHESIA: TOPICAL WITH MAC. INDICATIONS FOR SURGERY: Difficulty cooking and unable to drive. PROCEDURE: The patient was brought to the Operating Room and placed on the operative table. Following tetracaine drops, topical anesthesia was administered. This consisted of instrument wipe pledgets soaked in a solution of 4% Xylocaine mixed with 0.75% Marcaine in a 1:2 ratio. A 2 x 1 cm pledget was placed in the superior fornix. A 1 x 1 cm pledget was placed in the inferior fornix. The eye was patched shut for 5 minutes. The patch was removed. The eye was sterilely prepped and draped in the usual manner. Lid speculum was placed in the eye. The pledgets were removed. 4-0 black silk sutures were placed around the superior and the inferior rectus muscles to be used as traction. A conjunctival peritomy was made at the 10 o'clock position. Hemostasis was obtained with bipolar cautery. A posterior limbal groove was created using a crescent knife and dissected anteriorly towards the cornea. A sharp point blade was used to create a paracentesis site at the 2 o'clock position. 0.2 cc non preserved Lidocaine was injected into the anterior chamber. A 2.4 mm keratome was used to enter the anterior chamber through the groove. Viscoelastic was injected into the anterior chamber. An anterior capsulotomy was performed using Utrata forceps in a capsulorrhexis fashion. Hydrodissection and hydrodelineation were performed. Phacoemulsification was performed in [id number] technique. Following this, the I/A unit was used to remove residual cortex. Viscoelastic was injected into the capsular bag. The Intraocular lens was placed in the capsular bag. The I/A unit was used to remove residual viscoelastic. The wound was seen to be watertight under high and low pressure, and no sutures were plac ed. The intraocular lens was well centered. The pressure was adjusted in the eye to normal pressure. The 4-0 black silk sutures and lid speculum were removed. The eye was shielded after Besivance. prednisolone, and Cosopt drops were placed. The patient tolerated the procedure well and was sent to the Recovery Room in good condition.
== END 2020-04-05 10:40 | disposition home or self-care (01) ==
LOC: SC 07:37
PROVIDERS: ATTEND Ophthalmology
DX: H25.813 Combined forms of age-related cataract, bilateral (principal); E11.3553 Type 2 diabetes mellitus with stable proliferative diabetic retinopathy, bilateral; H35.371 Puckering of macula, right eye; H04.123 Dry eye syndrome of bilateral lacrimal glands; H52.4 Presbyopia; I10 Essential (primary) hypertension; E78.00 Pure hypercholesterolemia, unspecified; Z79.899 Other long term (current) drug therapy; Z79.4 Long term (current) use of insulin; Z79.84 Long term (current) use of oral hypoglycemic drugs
CPT/HCPCS: 66984; 82962; V2632; J2250; J3490 ×5; A9270; J0171

== ENCOUNTER 2020-04-26 11:54 | Day surgery (SDC) | payer MEDICARE, MEDICAID ==
[~2020-04-26 11:54] MED LIST changes: +BUPIVACAINE HCL 0.75% INJ/PF (7.5 MG/1 ML) 10 ML SDV OS PRN; -CHONDR SU A NA/HYALUR INTRAOC KIT (SURGICARE) ONE; -EPINEPHRINE INJ/PF 1 MG/1 ML AMPULE ONE; +FENTANYL CITRATE INJ/PF 100 MCG/2 ML AMPUL ONE; -KETOROLAC TROMETHAMINE 0.45% 4 DROP/0.4 ML DROPERETTE OD PRN; +KETOROLAC TROMETHAMINE 0.45% 4 DROP/0.4 ML DROPERETTE OS PRN; -LIDOCAINE 1% INJ-PF (10 MG/ML) 30 ML SDV ONE; +LIDOCAINE 4% INJ/PF (40 MG/ML) 5 ML AMPUL OS PRN; +MIDAZOLAM 2 MG/2 ML INJ ONE; +ONDANSETRON HCL INJ/PF 4 MG/2 ML SDV ONE; +TRYPAN BLUE 0.06 % OPH SOLN 0.5 ML DISP.SYRIN ONE
[2020-04-26] MEDS: BESIFLOXACIN HCL 0.6% OPH SUSP 5 ML BOTTLE OS PRN ×4 (12:02→13:23)
[2020-04-26] MEDS: TROPICAMIDE 1% OPH SOLN 15 ML OS PRN ×3 (12:02→12:26)
[2020-04-26] MEDS: CYCLOPENTOLATE 0.2%/PHENYLEPHRINE 1% OPH SOLN 2 ML OS PRN ×3 (12:02→12:26)
[2020-04-26] MEDS: TETRACAINE HCL 0.5% OPH SOLN 4 ML OS PRN ×3 (12:02→12:43)
[2020-04-26] MEDS: LIDOCAINE 1% INJ-PF (10 MG/ML) 30 ML SDV ONE ×2 (12:50→12:57)
[2020-04-26] MEDS: EPINEPHRINE INJ/PF 1 MG/1 ML AMPULE ONE ×2 (12:50→12:57)
[2020-04-26] MEDS: CHONDR SU A NA/HYALUR INTRAOC KIT (SURGICARE) ONE ×2 (12:50→12:57)
[2020-04-26] MEDS: DORZOLAMIDE HCL 2%/TIMOLOL MALEAT 0.5% OPH SOLN 10 ML OS PRN ×2 (13:23)
--- NOTE | 2020-04-26 13:35 | Operative Report ---
Operative Report-[facility] Operative Report: DATE OF SURGERY: 04/26/2020 PREOPERATIVE DIAGNOSIS: MATURE CATARACT, LEFT EYE. POSTOPERATIVE DIAGNOSIS: MATURE CATARACT, LEFT EYE. PROCEDURE PERFORMED: COMPLEX CATARACT EXTRACTION WITH INTRAOCULAR LENSES, LEFT EYE Intraocular Lens Model: MX60E 19.5 Total Phaco Time: 55.65 CDE SURGEON: MARLA DUONG MD ANESTHESIA: TOPICAL WITH MAC PLUS LIDOCAINE INDICATIONS FOR SURGERY: No depth perception and hand motion vision. Removal required to enable treatment of diabetic retinopathy Indications for complex: Mature cataract with poor red reflex requiring the use of dye PROCEDURE: The patient was brought to the operating room and placed on operative table. Following Tetracaine drops, topical anesthesia was administered. This consisted of instrument wipe pledgets soaked in a solution of 4% Xylocaine mixed with 0.75% of Marcaine in a 1:2 ratio. A 2 x 1 cm pledget was placed in the superior fornix. A 1 x 1 cm pledget was placed in inferior fornix. The eye was patched out for 5 minutes. The patch was removed. The eye was sterilely prepped and draped in the usual manner. Lid speculum was placed in the eye. The pledgets were removed. 4-0 black silk sutures were placed around the superior and inferior rectus muscle to be used as traction. A conjunctival peritomy was performed at the 10 o'clock position. Hemostasis was obtained with bipolar cautery. A posterior limbal groove was created using a crescent knife and dissected anteriorly towards the cornea. A sharp point blade was used to create a paracentesis site at the 2 o'clock position. Following the side-port incision, a syringe with air was injected into the eye, exchanging aqueous with air. Trypan blue dye was injected inferior to the air bubble. A 2.0 mm keratome was used to enter the anterior chamber through the groove. Viscoelastic was injected into the anterior chamber. An anterior capsulotomy was performed using Utrata forceps in the capsulorrhexis fashion. A small anterior capsular extension was seen at the 7 o'clock position and the final 2:00 hours of the capsulotomy were completed in a can body mechanic apprentice fashion. There was no extension posteriorly. Hydrodissection and hydrodelineation were performed. Phacoemulsification was performed in the divide and conquer technique. The lens was extremely dense. Following this, the I/A unit was used to remove residual cortex. Viscoelastic was injected into the capsular bag. The posterior capsule was scarred centrally and could not be polished. The intraocular lens was placed in the capsular bag and centered nicely. The I/A unit was used to remove residual viscoelastic. The wound was seen to be watertight under high and low pressure, and no sutures were placed. The intraocular lens was well centered. The pressure was adjusted in the eye to normal pressure. The 4-0 black silk sutures and lid speculum were removed. The eye was shielded after Besivance, prednsolone, and Cosopt drops were placed. The patient tolerated the procedure well and was sent to recovery room in good condition.
== END 2020-04-26 13:56 ==
LOC: SC 11:54
PROVIDERS: ATTEND Ophthalmology
DX: H25.89 Other age-related cataract (principal); Z96.1 Presence of intraocular lens; I10 Essential (primary) hypertension; E78.00 Pure hypercholesterolemia, unspecified; E11.9 Type 2 diabetes mellitus without complications; Z79.4 Long term (current) use of insulin; Z79.84 Long term (current) use of oral hypoglycemic drugs; Z79.899 Other long term (current) drug therapy
CPT/HCPCS: 82962; 66982; V2632; J2250; J3490 ×6; A9270; J0171; J3010; J2405

== ENCOUNTER 2020-06-23 15:19 | Emergency (ER) | payer MEDICARE, MEDICAID ==
[2020-06-23] MEDS ORDERED: VANCOMYCIN HCL INJ 1000 MG VIAL IV ONE (15:48)
--- NOTE | 2020-06-23 16:13 | ER Document Report ---
ED Medical Screen (RME) - General Chief Complaint: Foot Pain Stated Complaint: RIGHT FOOT SWOLLEN Time Seen by Provider: 06/23/20 15:43 Primary Care Provider: AMARA SABA MD [Primary Care Provider] - Follow up as needed Notes: Patient is a 60-year-old female who presents emergency department with right foot. Patient states that she felt her foot was itchy and went to go scratch it and it started swelling. Patient denies any fevers, body aches, or chills. Patient states that she is diabetic and has diabetic neuropathy. Exam: Purulent drainage coming from right fifth toe at PIP joint. I have greeted and performed a rapid initial assessment of this patient. A comprehensive ED assessment and evaluation of the patient, analysis of test results and completion of medical decision making process will be conducted by an additional ED providers. TRAVEL OUTSIDE OF THE [place] IN LAST 30 DAYS: No - Related Data Allergies/Adverse Reactions: No Known Allergies Allergy (Verified 03/28/20 11:17) Past Medical History - Social History Chew tobacco use (# tins/day): No Frequency of alcohol use: None Drug Abuse: None - Past Medical History Cardiac Medical History: Reports: Hx Hypercholesterolemia, Hx Hypertension Denies: Hx Heart Attack Pulmonary Medical History: Denies: Hx Asthma, Hx COPD Neurological Medical History: Denies: Hx Cerebrovascular Accident, Hx Seizures Endocrine Medical History: Reports: Hx Diabetes Mellitus Type 1, Hx Diabetes Mellitus Type 2 Renal/ Medical History: Denies: Hx Peritoneal Dialysis GI Medical History: Denies: Hx Hepatitis, Hx Hiatal Hernia, Hx Ulcer Musculoskeltal Medical History: Reports Hx Arthritis - Osteo Infectious Medical History: Denies: Hx Hepatitis Past Surgical History: Reports: Hx Section, Hx Orthopedic Surgery - b oth feet. Denies: Hx Hysterectomy, Hx Mastectomy, Hx Open Heart Surgery, Hx Pacemaker Physical Exam - Vital signs Vitals: Temp Pulse Resp BP Pulse Ox 99.8 F 99 18 160/71 H 97 06/23/20 15:30 06/23/20 15:30 06/23/20 15:30 06/23/20 15:30 06/23/20 15:30 Course - Vital Signs Vital signs: Temp Pulse Resp BP Pulse Ox 99.8 F 99 18 160/71 H 97 06/23/20 15:30 06/23/20 15:30 06/23/20 15:30 06/23/20 15:30 06/23/20 15:30 Doctor's Discharge - Discharge Referrals: AMARA SABA MD [Primary Care Provider] - Follow up as needed
--- NOTE | 2020-06-23 16:32 | RADIOLOGY REPORT (SQ) ---
EXAM DESCRIPTION: FOOT RIGHT COMPLETE IMAGES COMPLETED DATE/TIME: 06/23/2020 4:18 pm REASON FOR STUDY: right foot pain; eval osteomyelitis? COMPARISON: 04/24/2016. NUMBER OF VIEWS: Three views. TECHNIQUE: AP, lateral and oblique radiographic images acquired of the right foot. LIMITATIONS: None. FINDINGS: MINERALIZATION: Osteopenia. BONES: Chronic deformity of the midfoot with sclerosis and collapse of multiple tarsal bones. Planta r calcaneal spur. SOFT TISSUES: No soft tissue swelling. No foreign body. OTHER: No other significant finding. IMPRESSION: CHRONIC CHANGES IN THE MIDFOOT CONSISTENT WITH NEUROPATHIC JOINT (CHARCOT JOINT). NO AC DONTE FINDINGS. NO DEFINITIVE RADIOGRAPHIC FINDINGS OF OSTEOMYELITIS. TECHNICAL DOCUMENTATION: JOB ID: [id number] 2010 [employer]- All Rights Reserved Reading location - IP/workstation name: [email or web address]
[2020-06-23 17:10] LABS: ABSOLUTE EOSINOPHILS # (AUTO) 0.1 10^3/uL (0.0-0.6); ABSOLUTE LYMPHOCYTES (AUTO) 1.3 10^3/uL (0.5-4.7); ABSOLUTE MONOCYTES (AUTO) 0.8 10^3/uL (0.1-1.4); ABSOLUTE NEUT (AUTO) 7.7 10^3/uL (1.7-8.2); BASOPHILS % (AUTO) 0.3 % (0-2); EOSINOPHILS % (AUTO) 0.7 % (0-6); HEMATOCRIT 35.6 % (36.0-47.0); HEMOGLOBIN 11.9 g/dL (12.0-15.5); MEAN CORPUSCULAR HEMOGLOBIN 27.7 pg (27.0-33.4); MEAN CORPUSCULAR HGB CONC 33.4 g/dL (32.0-36.0); MEAN CORPUSCULAR VOLUME 83 fl (80-97); MONOCYTES % (AUTO) 7.7 % (3-13); PLATELET COUNT 366 10^3/uL (150-450); SEGMENTED NEUTROPHILS % (AUTO) 78.3 % (42-78); TOTAL CELLS COUNTED % (AUTO) 100 %; WHITE BLOOD COUNT 9.9 10^3/uL (4.0-10.5)
[2020-06-23 17:26] LABS: ALKALINE PHOSPHATASE 124 U/L (38-126); ANION GAP 10 (5-19); ASPARTATE AMINO TRANSFERASE 17 U/L (14-36); BILIRUBIN,DIRECT 0.3 mg/dL (0.0-0.4); BILIRUBIN,TOTAL 0.9 mg/dL (0.2-1.3); BLOOD UREA NITROGEN 13 mg/dL (7-20); CALCIUM 9.3 mg/dL (8.4-10.2); CARBON DIOXIDE 29 mmol/L (22-30); CHLORIDE 98 mmol/L (98-107); GLUCOSE 311 mg/dL (75-110); POTASSIUM 4.1 mmol/L (3.6-5.0); TOTAL PROTEIN 7.7 g/dL (6.3-8.2)
[2020-06-23 22:12] VITALS: BP 130/70
== END 2020-06-23 23:30 | disposition left against medical advice (07) ==
LOC: ER 15:19
DX: Z53.20 Procedure and treatment not carried out because of patient's decision for unspecified reasons (principal); M79.671 Pain in right foot; M79.89 Other specified soft tissue disorders; E11.40 Type 2 diabetes mellitus with diabetic neuropathy, unspecified; I10 Essential (primary) hypertension
CPT/HCPCS: 36415; 80053; 83605; 85025; 87040; 99281

== ENCOUNTER 2020-06-27 11:05 | Inpatient (IN) | payer MEDICARE, MEDICAID ==
[2020-06-27 13:31] LABS: HEMATOCRIT 31.9 % (36.0-47.0); HEMOGLOBIN 10.8 g/dL (12.0-15.5); MEAN CORPUSCULAR HEMOGLOBIN 27.8 pg (27.0-33.4); MEAN CORPUSCULAR HGB CONC 33.9 g/dL (32.0-36.0); MEAN CORPUSCULAR VOLUME 82 fl (80-97); PLATELET COUNT 430 10^3/uL (150-450); RED BLOOD COUNT 3.89 10^6/uL (3.72-5.28); RED CELL DISTRIBUTION WIDTH 12.7 % (11.5-14.0); WHITE BLOOD COUNT 7.8 10^3/uL (4.0-10.5)
[2020-06-27 13:50] LABS: ALBUMIN 3.5 g/dL (3.5-5.0); ALKALINE PHOSPHATASE 109 U/L (38-126); ANION GAP 7 (5-19); ASPARTATE AMINO TRANSFERASE 20 U/L (14-36); BILIRUBIN,DIRECT 0.3 mg/dL (0.0-0.4); BILIRUBIN,TOTAL 0.8 mg/dL (0.2-1.3); BLOOD UREA NITROGEN 13 mg/dL (7-20); CARBON DIOXIDE 31 mmol/L (22-30); CHLORIDE 101 mmol/L (98-107); GLUCOSE 248 mg/dL (75-110); POTASSIUM 3.6 mmol/L (3.6-5.0); TOTAL PROTEIN 6.8 g/dL (6.3-8.2)
[2020-06-27] MEDS ORDERED: GLUCAGON,HUMAN RECOMB 1 MG INJ SUBCUT PRN (13:51)
[2020-06-27] MEDS ORDERED: DEXTROSE 40% GEL 15 GM TUBE PO PRN ×2 (13:51)
[2020-06-27] MEDS ORDERED: DEXTROSE 50%-WATER 25 GM/50 ML DISP.SYRIN IV PRN ×2 (13:51)
[2020-06-27] MEDS: PIPERACILLIN SODIUM/TAZOBACTAM 3.375 GM in NORMAL SALINE 100 ML IV SCH ×2 (15:00→21:53)
[2020-06-27] MEDS: VANCOMYCIN HCL 1,250 MG in DEXTROSE 5%-WATER 250 ML IV SCH (15:00)
[2020-06-27] MEDS: INSULIN LISPRO 100 UNIT/ML 3 ML VIAL SUBCUT SCH ×2 (15:10→21:55)
[2020-06-27 15:24] LABS: FREE T4 (FREE THYROXINE) 1.19 ng/dL (0.78-2.19)
[2020-06-27 15:38] LABS: THYROID STIMULATING HORMONE 1.27 uIU/mL (0.47-4.68)
--- NOTE | 2020-06-27 16:00 | RADIOLOGY REPORT (SQ) ---
EXAM DESCRIPTION: CHEST SINGLE VIEW IMAGES COMPLETED DATE/TIME: 06/27/2020 3:03 pm REASON FOR STUDY: cough COMPARISON: AP view of the chest from 12/29/2018. EXAM PARAMETERS: NUMBER OF VIEWS: One view. TECHNIQUE: An AP view of the chest was obtained. RADIATION DOSE: NA LIMITATIONS: None. FINDINGS: LUNGS AND PLEURA: No consolidation, pleural effusion or pneumothorax. MEDIASTINUM AND HILAR STRUCTURES: No mediastinal or hilar contour abnormality. HEART AND VASCULAR STRUCTURES: The cardiac silhouette and pulmonary vasculature are within normal rodriguez its. BONES: No acute findings. HARDWARE: None in the chest. OTHER: No other finding. IMPRESSION: No acute cardiopulmonary process. TECHNICAL DOCUMENTATION: JOB ID: [id number] 2010 [employer]- All Rights Reserved Reading location - IP/workstation name: [email or web address]
[2020-06-27 19:34] LABS: APPEARANCE,URINE SLIGHTLY-CLOUDY; BILIRUBIN,URINE NEGATIVE (NEGATIVE); COLOR,URINE YELLOW; GLUCOSE, URINE >=500 mg/dL (NEGATIVE); KETONES,URINE NEGATIVE (NEGATIVE); LEUKOCYTE ESTERASE,URINE NEGATIVE (NEGATIVE); NITRITE,URINE NEGATIVE (NEGATIVE); PROTEIN,URINE NEGATIVE (NEGATIVE); URINE SPECIFIC GRAVITY 1.023; UROBILINOGEN,URINE NEGATIVE mg/dL (<2.0)
[2020-06-27] MEDS ORDERED: (PENDING PHARMACY ID) (Bromfenac Sodium [Prolensa] 1 DROP) OU SCH (20:15)
[2020-06-27] MEDS ORDERED: INSULIN GLARGINE HUM REC ANLOG 38 UNIT SQ SCH (20:15)
[2020-06-27] MEDS ORDERED: (PENDING PHARMACY ID) (Difluprednate [Durezol] 1 DROP) OU SCH (20:15)
--- NOTE | 2020-06-27 20:31 | PDOC H&P ---
History of Present Illness Admission Date/PCP: 06/27/20 11:53 AMARA SABA MD History of Present Illness: ALMAZ ALVARADO is a 60 year old female, She has type 2 diabetes mellitus co mplicated with neuropathy, retinopathy poorly controlled, the hemoglobin A1c is 11, she was supposed to be on GLP-1 receptor agonist, SGLT 1 inhibitor but the medication that was reconciled by the pharmacist did not include all his medications. She came to the office this morning for evaluation of swelling of the right foot, in the office on evaluation she was found to have abscess of the foot the fourth and fifth toes and in jeopardy of amputation. 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 Past Medical History Cardiac Medical History: Reports: Hyperlipidema, Hypertension Endocrine Medical History: Reports: Diabetes Mellitus Type 2 Musculoskeltal Medical History: Reports: Arthritis - Osteo Psychiatric Medical History: Denies: Depression Past Surgical History Past Surgical History: Reports: Section, Orthopedic Surgery - both feet Social History Smoking Status: Never Smoker Electronic Cigarette use?: No Frequency of Alcohol Use: None Hx Recreational Drug Use: No Drugs: None Hx Prescription Drug Abuse: No Family History Family History: None, Reviewed & Not Pertinent Parental Family History Reviewed: Yes Children Family History Reviewed: Yes Sibling(s) Family History Reviewed.: Yes Medication/Allergy Home Medications: RX: Amlodipine Besylate [Norvasc 10 mg Tablet] 10 mg PO DAILY #90 tablet 06/04/18 RX: Pravastatin Sodium [Pravachol] 20 mg PO DAILY #90 tablet 06/04/18 RX: Insulin Glargine,Hum.rec.anlog [Lantus Solostar] 38 unit SQ DAILY 03/28/20 Bromfenac Sodium [Prolensa] 1 drop OU DAILY 06/27/20 Difluprednate [Durezol] 1 drop OU BID 06/27/20 RX: Gabapentin 300 mg PO TID 06/27/20 Allergies/Adverse Reactions: No Known Allergies Allergy (Verified 03/28/20 11:17) Review of Systems Constitutional: ABSENT: chills, fever(s), headache(s), weight gain, weight loss Eyes: ABSENT: visual disturbances Ears: ABSENT: hearing changes Cardiovascular: ABSENT: chest pain, dyspnea on exertion, edema, orthropnea, palpitations Respiratory: ABSENT: cough, hemoptysis Gastrointestinal: ABSENT: abdominal pain, constipation, diarrhea, hematemesis, hematochezia, nausea, vomiting Genitourinary: ABSENT: dysuria, hematuria Musculoskeletal: PRESENT: other - Right foot swelling. ABSENT: joint swelling Integumentary: ABSENT: rash, wounds Neurological: ABSENT: abnormal gait, abnormal speech, confusion, dizziness, focal weakness, syncope Psychiatric: ABSENT: anxiety, depression, homidical ideation, suicidal ideation Endocrine: ABSENT: cold intolerance, heat intolerance, menstrual abnormalities, polydipsia, polyuria Hematologic/Lymphatic: ABSENT: easy bleeding, easy bruising, lymphadenopathy Physical Exam Vital Signs: Temp Pulse Resp BP Pulse Ox 98.5 F 86 19 133/59 H 98 06/27/20 16:20 06/27/20 19:00 06/27/20 16:20 06/27/20 16:20 06/27/20 16:20 Intake & Output 06/26/20 06/27/20 06/28/20 06:59 06:59 06:59 Intake Total 250 Balance 250 Weight 88.6 kg General appearance: PRESENT: no acute distress Head exam: PRESENT: atraumatic, normocephalic Eye exam: PRESENT: PERRLA Ear exam: PRESENT: normal external ear exam Mouth exam: PRESENT: moist, tongue midline Neck exam: PRESENT: full ROM Respiratory exam: PRESENT: clear to auscultation kat Cardiovascular exam: PRESENT: RRR, +S1, +S2 Vascular exam: PRESENT: normal capillary refill GI/Abdominal exam: PRESENT: normal bowel sounds, soft Rectal exam: PRESENT: deferred Extremities exam: PRESENT: other - swelling,abscess of the right foot Neurological exam: PRESENT: alert, CN II-XII grossly intact Psychiatric exam: PRESENT: appropriate affect, normal mood Skin exam: PRESENT: dry, intact, warm Results Laboratory Results: 06/27/20 13:00 06/27/20 13:00 06/27/20 06/27/20 06/27/20 13:00 13:00 13:00 WBC 7.8 RBC 3.89 Hgb 10.8 L Hct 31.9 L MCV 82 MCH 27.8 MCHC 33.9 RDW 12.7 Plt Count 430 Sodium 138.9 Potassium 3.6 Chloride 101 Carbon Dioxide 31 H Anion Gap 7 BUN 13 Creatinine 0.69 Est GFR ( Amer) > 60 Glucose 248 H Calcium 9.0 Total Bilirubin 0.8 AST 20 Alkaline Phosphatase 109 Total Protein 6.8 Albumin 3.5 TSH 1.27 Free T4 1.19 Urine Color Urine Appearance Urine pH Ur Specific [place] Urine Protein Urine Glucose (UA) Urine Ketones Urine Blood Urine Nitrite Ur Leukocyte Esterase Urine WBC (Auto) Urine RBC (Auto) 06/27/20 18:50 WBC RBC Hgb Hct MCV MCH MCHC RDW Plt Count Sodium Potassium Chloride Carbon Dioxide Anion Gap BUN Creatinine Est GFR ( Amer) Glucose Calcium Total Bilirubin AST Alkaline Phosphatase Total Protein Albumin TSH Free T4 Urine Color YELLOW Urine Appearance SLIGHTLY-CLOUDY Urine pH 6.0 Ur Specific [place] 1.023 Urine Protein NEGATIVE Urine Glucose (UA) >=500 H Urine Ketones NEGATIVE Urine Blood SMALL H Urine Nitrite NEGATIVE Ur Leukocyte Esterase NEGATIVE Urine WBC (Auto) 1 Urine RBC (Auto) 1 Impressions: Chest X-Ray 06/27/20 00:00 IMPRESSION: No acute cardiopulmonary process. Assessment & Plan - Diagnosis (1) Abscess of right foot including toes Is this a current diagnosis for this admission?: Yes Plan: Patient with abscess of the right foot, consultation to be requested from surgery, start antibiotic to cover potential pathogens including MRSA, gram- negative, gram-positive organisms. (2) Type 2 diabetes mellitus with diabetic polyneuropathy Qualifiers: Diabetes mellitus meterman insulin use: with meterman use Qualified Code(s): E11.42 - Type 2 diabetes mellitus with diabetic polyneuropathy; Z79.4 - intermediate project manager (current) use of insulin; Z79.4 - MCFP (current) use of insulin; Z79.4 - intermediate project manager (current) use of insulin; Z79.4 - MCFP (current) use of insulin Is this a current diagnosis for this admission?: Yes (3) Non compliance with medical treatment Is this a current diagnosis for this admission?: Yes - Time Time Spent: Greater than 70 Minutes Critical Time spent with patient: 25-34 minutes Medications reviewed and adjusted accordingly: Yes Anticipated Discharge Disposition: Home, Self Care Anticipated Discharge Timeframe: within 72 hours
[2020-06-27] MEDS ORDERED: INSULIN GLARGINE,HUM.REC.ANLOG 1,000 UNIT/10 ML VIAL (PYX) SUBCUT ONE (21:00)
[2020-06-27] MEDS: ATORVASTATIN CALCIUM 10 MG TABLET PO SCH (21:56)
[2020-06-27] MEDS: GABAPENTIN 300 MG CAPSULE PO SCH (21:56)
[2020-06-27] MEDS: AMLODIPINE BESYLATE 10 MG TABLET PO SCH (22:00)
[2020-06-28] MEDS: VANCOMYCIN HCL 1,250 MG in DEXTROSE 5%-WATER 250 ML IV SCH ×2 (02:14→17:08)
[2020-06-28] MEDS: GABAPENTIN 300 MG CAPSULE PO SCH ×3 (06:08→22:03)
[2020-06-28] MEDS: PIPERACILLIN SODIUM/TAZOBACTAM 3.375 GM in NORMAL SALINE 100 ML IV SCH ×3 (06:30→22:03)
[2020-06-28] MEDS: INSULIN LISPRO 100 UNIT/ML 3 ML VIAL SUBCUT SCH ×4 (07:30→21:58)
--- NOTE | 2020-06-28 07:43 | PDOC CONSULTATION ---
Consultation Consult Date: 06/28/20 Provider Consulted: SURGICAL SURGICALIST Consult reason:: Diabetic foot infection History of Present Illness Admission Date/PCP: 06/27/20 11:53 AMARA SABA MD Patient complains of: Purulent drainage right foot History of Present Illness: ALMAZ ALVARADO is a 60 year old female seen at the request of Dr. Saba. Patient is a diabetic. She has increasing pain and purulent drainage of the right foot, in the webspace between the fourth and fifth toes. This has been worsening over the last 48 hours. Patient was seen by Dr. Saba in his office, and direct admitted to the hospital. She was started on intravenous an tibiotics, and surgery was consulted. She denies fevers, chills, nausea, vomiting, dizziness, orthostasis, headache, nausea, vomiting, abdominal pain, dizziness. Past Medical History Cardiac Medical History: Reports: Hyperlipidema, Hypertension Endocrine Medical History: Reports: Diabetes Mellitus Type 2 Musculoskeltal Medical History: Reports: Arthritis - Osteo Psychiatric Medical History: Denies: Depression Past Surgical History Past Surgical History: Reports: Section, Orthopedic Surgery - both feet Social History Smoking Status: Never Smoker Electronic Cigarette use?: No Frequency of Alcohol Use: None Hx Recreational Drug Use: No Drugs: None Hx Prescription Drug Abuse: No Family History Family History: None, Reviewed & Not Pertinent Parental Family History Reviewed: Yes Children Family History Reviewed: Yes Sibling(s) Family History Reviewed.: Yes Medication/Allergy Home Medications: Amlodipine Besylate [Norvasc 10 mg Tablet] 10 mg PO DAILY #90 tablet 06/04/18 Pravastatin Sodium [Pravachol] 20 mg PO DAILY #90 tablet 06/04/18 Insulin Glargine,Hum.rec.anlog [Lantus Solostar] 38 unit SQ DAILY 03/28/20 Bromfenac Sodium [Prolensa] 1 drop OU DAILY 06/27/20 Difluprednate [Durezol] 1 drop OU BID 06/27/20 Gabapentin 300 mg PO TID 06/27/20 Allergies/Adverse Reactions: No Known Allergies Allergy (Verified 03/28/20 11:17) Review of Systems Constitutional: ABSENT: anorexia, chills, fatigue Eyes: ABSENT: visual disturbances Ears: ABSENT: hearing changes Nose, Mouth, and Throat: ABSENT: headache(s) Cardiovascular: ABSENT: chest pain Respiratory: PRESENT: cough, dyspnea Gastrointestinal: ABSENT: abdominal pain Musculoskeletal: ABSENT: back pain Integumentary: PRESENT: erythema - right foot,, wounds - right foot Neurological: ABSENT: confusion, convulsions, dizziness Psychiatric: ABSENT: anxiety, depression Endocrine: ABSENT: cold intolerance, heat intolerance Hematologic/Lymphatic: ABSENT: easy bleeding, easy bruising Physical Exam Vital Signs: Temp Pulse Resp BP Pulse Ox 99.3 F 74 16 128/46 H 96 06/27/20 23:52 06/28/20 02:00 06/27/20 23:52 06/27/20 23:52 06/27/20 23:52 Intake & Output 06/27/20 06/28/20 06/29/20 06:59 06:59 06:59 Intake Total 250 Balance 250 Weight 88.6 kg General appearance: PRESENT: no acute distress, cooperative Head exam: PRESENT: atraumatic, normocephalic Eye exam: PRESENT: EOMI, PERRLA. ABSENT: scleral icterus Mouth exam: PRESENT: moist, neck supple Neck exam: ABSENT: meningismus, tenderness, thyromegaly, tracheal deviation Respiratory exam: PRESENT: unlabored. ABSENT: tachypnea Cardiovascular exam: ABSENT: tachycardia Vascular exam: PRESENT: normal capillary refill GI/Abdominal exam: PRESENT: soft. ABSENT: ascites, distended, guarding, tenderness Rectal exam: PRESENT: deferred Extremities exam: PRESENT: other - Necrotic appearing skin and purulent drainage from the fourth and fifth toes, at the interspace. Minimal erythema.. ABSENT: clubbing Musculoskeletal exam: ABSENT: deformity Neurological exam: PRESENT: alert, awake, oriented to person, oriented to place, oriented to time, oriented to situation Psychiatric exam: ABSENT: agitated, anxious, depressed Focused psych exam: ABSENT: delusional Skin exam: PRESENT: erythema - Right foot Results Laboratory Results: 06/27/20 13:00 06/27/20 13:00 06/27/20 06/27/20 06/27/20 13:00 13:00 13:00 WBC 7.8 RBC 3.89 Hgb 10.8 L Hct 31.9 L MCV 82 MCH 27.8 MCHC 33.9 RDW 12.7 Plt Count 430 Sodium 138.9 Potassium 3.6 Chloride 101 Carbon Dioxide 31 H Anion Gap 7 BUN 13 Creatinine 0.69 Est GFR ( Amer) > 60 Glucose 248 H Calcium 9.0 Total Bilirubin 0.8 AST 20 Alkaline Phosphatase 109 Total Protein 6.8 Albumin 3.5 TSH 1.27 Free T4 1.19 Urine Color Urine Appearance Urine pH Ur Specific [place] Urine Protein Urine Glucose (UA) Urine Ketones Urine Blood Urine Nitrite Ur Leukocyte Esterase Urine WBC (Auto) Urine RBC (Auto) 06/27/20 18:50 WBC RBC Hgb Hct MCV MCH MCHC RDW Plt Count Sodium Potassium Chloride Carbon Dioxide Anion Gap BUN Creatinine Est GFR ( Amer) Glucose Calcium Total Bilirubin AST Alkaline Phosphatase Total Protein Albumin TSH Free T4 Urine Color YELLOW Urine Appearance SLIGHTLY-CLOUDY Urine pH 6.0 Ur Specific [place] 1.023 Urine Protein NEGATIVE Urine Glucose (UA) >=500 H Urine Ketones NEGATIVE Urine Blood SMALL H Urine Nitrite NEGATIVE Ur Leukocyte Esterase NEGATIVE Urine WBC (Auto) 1 Urine RBC (Auto) 1 Impressions: Chest X-Ray 06/27/20 00:00 IMPRESSION: No acute cardiopulmonary process. Assessment & Plan - Diagnosis (1) Abscess of right foot including toes Is this a current diagnosis for this admission?: Yes - Plan Summary Plan Summary: 60-year-old female with a diabetic foot infection. She is draining purulent material. She would likely benefit from operative intervention. Plan for debridement of the right foot, versus fifth toe amputation. This has been discussed with the patient at length. Risks/benefits discussed, informed consent obtained, and all questions answered.
[2020-06-28] MEDS: AMLODIPINE BESYLATE 10 MG TABLET PO SCH (09:10)
[2020-06-28] MEDS ORDERED: PROPOFOL INJ 200 MG/20 ML VIAL IV ONE (13:51)
[2020-06-28] MEDS ORDERED: FENTANYL CITRATE INJ/PF 100 MCG/2 ML AMPUL ONE (13:51)
[2020-06-28] MEDS ORDERED: MIDAZOLAM 2 MG/2 ML INJ ONE (13:51)
[2020-06-28] MEDS ORDERED: ONDANSETRON HCL INJ/PF 4 MG/2 ML SDV ONE (13:51)
[2020-06-28] MEDS ORDERED: LIDOCAINE 1% INJ-PF (10 MG/ML) 30 ML SDV ONE (14:39)
[2020-06-28] MEDS ORDERED: ONDANSETRON HCL INJ/PF 4 MG/2 ML SDV IV PRN (16:12)
[2020-06-28] MEDS ORDERED: PROMETHAZINE HCL INJ 25 MG/1 ML VIAL IV PRN ×2 (16:12)
[2020-06-28] MEDS ORDERED: DIPHENHYDRAMINE HCL 50 MG/ML VIAL IV PRN (16:12)
[2020-06-28] MEDS ORDERED: FENTANYL CITRATE INJ/PF 100 MCG/2 ML AMPUL IV PRN ×3 (16:12)
[2020-06-28] MEDS ORDERED: MEPERIDINE HCL/PF INJ 25 MG/1 ML DISP.SYRIN IV PRN (16:12)
--- NOTE | 2020-06-28 16:38 | Operative Report ---
Nonrecallable Operative Report DATE OF SURGERY: 06/28/20 PREOPERATIVE DIAGNOSIS: Right fifth toe infection POSTOPERATIVE DIAGNOSIS: Right fifth toe infection OPERATION: Right fifth toe amputation transmetatarsal SURGEON: ELIER THOMAS ANESTHESIA: Spinal TISSUE REMOVED OR ALTERED: Right fifth toe COMPLICATIONS: None ESTIMATED BLOOD LOSS: 5 cc INTRAOPERATIVE FINDINGS: See note PROCEDURE: Patient was brought to the operating room awake alert in stable condition placed on the operative table supine position after given a spinal anesthetic. The right foot was prepped and draped in usual sterile manner. After appropriate timeout site verification the procedure commenced. A racquet incision was made in the webspace extending to the lateral aspect of the right foot with a 15 blade dissection was carried down through subcutaneous tissue with a 15 blade to tendon of the fifth metatarsal. This was divided with a 15 blade the lateral aspect of the fourth toe webspace appeared to have a pressure effect of the swelling of the right fifth toe it appeared to be white in color consistent with moist skin. This was also excised with a 15 blade. Once we excised the toe from the metatarsal joint we divided the fifth metatarsal with a bone cutters back to cancellus bone. Hemostasis was obtained with Bovie cautery the wound was irrigated normal saline pack with a Betadine soaked sponge and then the foot was wrapped with a Kerlix gauze which completed the procedure. Estimated blood loss was less than 5 cc sponge needle counts correct x2 the patient was transferred recovery in stable condition no complications.
[2020-06-28] MEDS ORDERED: OXYCODONE-ACETAMINOPHEN 5-325 MG TABLET PO PRN (17:25)
--- NOTE | 2020-06-28 19:42 | PDOC PROGRESS REPORT ---
Subjective Progress Note for:: 06/28/20 Subjective:: Patient was taking to the operative room today by the surgeon, she underwent amputation of the fifth digit of the right foot Reason For Visit: ABSCESS,FOOT/DIRECT ADMIT Physical Exam Vital Signs: Temp Pulse Resp BP Pulse Ox 97.8 F 68 20 107/62 98 06/28/20 16:50 06/28/20 16:50 06/28/20 16:50 06/28/20 16:50 06/28/20 16:50 Intake & Output 06/27/20 06/28/20 06/29/20 06:59 06:59 06:59 Intake Total 250 1100 Output Total 0 Balance 250 1100 Weight 88.6 kg General appearance: PRESENT: no acute distress Eye exam: PRESENT: PERRLA Respiratory exam: PRESENT: clear to auscultation kat Cardiovascular exam: PRESENT: +S1, +S2 GI/Abdominal exam: PRESENT: soft Neurological exam: PRESENT: alert, CN II-XII grossly intact Results Laboratory Results: 06/27/20 13:00 06/27/20 13:00 Impressions: Chest X-Ray 06/27/20 00:00 IMPRESSION: No acute cardiopulmonary process. Assessment & Plan - Diagnosis (1) Abscess of right foot including toes Is this a current diagnosis for this admission?: Yes Plan: Continue IV antibiotic (2) Type 2 diabetes mellitus with diabetic polyneuropathy Qualifiers: Diabetes mellitus watermaster insulin use: with detention use Qualified Code(s): E11.42 - Type 2 diabetes mellitus with diabetic polyneuropathy; Z79.4 - terminal block assembler (current) use of insulin; Z79.4 - terminal block assembler (current) use of insulin; Z79.4 - terminal block assembler (current) use of insulin; Z79.4 - terminal block assembler (current) use of insulin Is this a current diagnosis for this admission?: Yes (3) Non compliance with medical treatment Is this a current diagnosis for this admission?: Yes - Time Time Spent with patient: 25-34 minutes Level of Care: IMCU Medications reviewed and adjusted accordingly: Yes Anticipated DC Timeframe: within 72 hours
[2020-06-28] MEDS: INSULIN GLARGINE,HUM.REC.ANLOG 1,000 UNIT/10 ML VIAL SUBCUT SCH (22:03)
[2020-06-28] MEDS: ATORVASTATIN CALCIUM 10 MG TABLET PO SCH (22:04)
[2020-06-29] MEDS: VANCOMYCIN HCL 1,250 MG in DEXTROSE 5%-WATER 250 ML IV SCH ×2 (02:33→16:50)
[2020-06-29] MEDS: PIPERACILLIN SODIUM/TAZOBACTAM 3.375 GM in NORMAL SALINE 100 ML IV SCH ×2 (05:25→15:21)
[2020-06-29] MEDS: GABAPENTIN 300 MG CAPSULE PO SCH ×3 (05:25→21:59)
[2020-06-29] MEDS: INSULIN LISPRO 100 UNIT/ML 3 ML VIAL SUBCUT SCH ×4 (08:05→21:59)
[2020-06-29] MEDS: AMLODIPINE BESYLATE 10 MG TABLET PO SCH (09:53)
--- NOTE | 2020-06-29 13:18 | PDOC PROGRESS REPORT ---
Subjective Progress Note for:: 06/29/20 Reason For Visit: ABSCESS,FOOT/DIRECT ADMIT Physical Exam Vital Signs: Temp Pulse Resp BP Pulse Ox 98.8 F 75 18 114/47 L 94 06/29/20 11:44 06/29/20 11:44 06/29/20 07:05 06/29/20 11:44 06/29/20 11:44 Intake & Output 06/28/20 06/29/20 06/30/20 06:59 06:59 06:59 Intake Total 250 1100 250 Output Total 600 Balance 250 500 250 Weight 88.6 kg 92.3 kg Results Laboratory Results: 06/27/20 13:00 06/27/20 13:00 Impressions: Chest X-Ray 06/27/20 00:00 IMPRESSION: No acute cardiopulmonary process. Assessment & Plan - Diagnosis (1) Abscess of right foot including toes Is this a current diagnosis for this admission?: Yes - Time Anticipated Discharge Disposition: Home with Home Health Anticipated Discharge Timeframe: within 48 hours - Plan Summary Plan Summary: 60-year-old female status post amputation of the right fifth toe. The wound appears clean today. I have ordered a home wound VAC. We are awaiting approval . Continue with damp to dry dressing changes twice daily until wound VAC has been approved. Okay to shower. Okay to ambulate, with most of the weight being placed on the heel.
--- NOTE | 2020-06-29 16:13 | PDOC PROGRESS REPORT ---
Subjective Progress Note for:: 06/29/20 Subjective:: Patient seen by the bedside status post amputation of the fifth toe of the right foot, she was seen by the surgeon wound VAC recommended. The SARS-CoV-2 test was negative, She will be downgraded to regular floor from COVID unit Reason For Visit: ABSCESS,FOOT/DIRECT ADMIT Physical Exam Vital Signs: Temp Pulse Resp BP Pulse Ox 98.8 F 89 18 114/47 L 94 06/29/20 11:44 06/29/20 14:00 06/29/20 07:05 06/29/20 11:44 06/29/20 11:44 Intake & Output 06/28/20 06/29/20 06/30/20 06:59 06:59 06:59 Intake Total 250 1100 250 Output Total 600 Balance 250 500 250 Weight 88.6 kg 92.3 kg General appearance: PRESENT: no acute distress Eye exam: PRESENT: PERRLA Respiratory exam: PRESENT: clear to auscultation kat Cardiovascular exam: PRESENT: +S1, +S2 GI/Abdominal exam: PRESENT: soft Neurological exam: PRESENT: alert Results Laboratory Results: 06/27/20 13:00 06/27/20 13:00 Impressions: Chest X-Ray 06/27/20 00:00 IMPRESSION: No acute cardiopulmonary process. Assessment & Plan - Diagnosis (1) Abscess of right foot including toes Is this a current diagnosis for this admission?: Yes Plan: Continue IV antibiotic (2) Type 2 diabetes mellitus with diabetic polyneuropathy Qualifiers: Diabetes mellitus penitentiary insulin use: with long goods drier use Qualified Code(s): E11.42 - Type 2 diabetes mellitus with diabetic polyneuropathy; Z79.4 - rodent exterminator (current) use of insulin; Z79.4 - rodent exterminator (current) use of insulin; Z79.4 - rodent exterminator (current) use of insulin; Z79.4 - rodent exterminator (current) use of insulin Is this a current diagnosis for this admission?: Yes (3) Non compliance with medical treatment Is this a current diagnosis for this admission?: Yes - Time Time Spent with patient: 25-34 minutes Level of Care: IMCU Medications reviewed and adjusted accordingly: Yes Anticipated discharge: Home Anticipated DC Timeframe: within 72 hours
[2020-06-29] MEDS: ATORVASTATIN CALCIUM 10 MG TABLET PO SCH (21:59)
[2020-06-29] MEDS: INSULIN GLARGINE,HUM.REC.ANLOG 1,000 UNIT/10 ML VIAL SUBCUT SCH (22:55)
[2020-06-30] MEDS: PIPERACILLIN SODIUM/TAZOBACTAM 3.375 GM in NORMAL SALINE 100 ML IV SCH ×3 (00:35→15:16)
[2020-06-30] MEDS: VANCOMYCIN HCL 1,250 MG in DEXTROSE 5%-WATER 250 ML IV SCH (03:20)
[2020-06-30] MEDS: GABAPENTIN 300 MG CAPSULE PO SCH ×2 (05:44→15:15)
[2020-06-30] MEDS: INSULIN LISPRO 100 UNIT/ML 3 ML VIAL SUBCUT SCH ×2 (09:03→14:19)
[2020-06-30] MEDS: AMLODIPINE BESYLATE 10 MG TABLET PO SCH (09:06)
--- NOTE | 2020-06-30 13:05 | PDOC PROGRESS REPORT ---
Subjective Progress Note for:: 06/30/20 Subjective:: comfortable Reason For Visit: ABSCESS,FOOT/DIRECT ADMIT Physical Exam Vital Signs: Temp Pulse Resp BP Pulse Ox 99.6 F 73 18 135/57 H 96 06/30/20 08:15 06/30/20 07:00 06/30/20 03:54 06/30/20 03:54 06/30/20 03:54 Intake & Output 06/29/20 06/30/20 07/01/20 06:59 06:59 06:59 Intake Total 1100 1270 260 Output Total 600 Balance 500 1270 260 Weight 92.3 kg 90.8 kg General appearance: PRESENT: no acute distress Extremities exam: PRESENT: other - Right foot = covered with dressings clean, dry, and intact Results Laboratory Results: 06/27/20 13:00 06/27/20 13:00 Impressions: Chest X-Ray 06/27/20 00:00 IMPRESSION: No acute cardiopulmonary process. Assessment & Plan - Time Anticipated Discharge Disposition: Home with Home Health Anticipated Discharge Timeframe: within 24 hours - Plan Summary Plan Summary: Assessment: Status post right fifth toe amputation for abscess and gangrene Status post normal saline wet-to-dry dressing changes to right fifth toe amputation site Patient doing clinically well Right foot covered with dressings clean, dry, and intact Plan: Patient can be discharged to home today by the general surgery viewpoint Home health nurse to come to the patient's house and place a wound VAC right foot surgical site every Saturday Follow-up with surgery office in 1 month We will sign off. Please call us with questions
[2020-06-30 18:10] VITALS: BP 133/59
--- NOTE | 2020-06-30 21:34 | PDOC DISCHARGE SUMMARY ---
Impression - Admit/DC Date/PCP Admission Date/Primary Care Provider: 06/27/20 11:53 AMARA SABA MD Discharge Date: 06/30/20 - Discharge Diagnosis (1) Abscess of right foot including toes Is this a current diagnosis for this admission?: Yes (2) Type 2 diabetes mellitus with diabetic polyneuropathy Is this a current diagnosis for this admission?: Yes (3) Non compliance with medical treatment Is this a current diagnosis for this admission?: Yes - Additional Information Resuscitation Status: Full Code Discharge Diet: Diabetic Discharge Activity: Activity As Tolerated, Balance Activity w/Rest Referrals: AMARA SABA MD [Primary Care Provider] - 07/06/20 10:00 am Prescriptions: Empagliflozin [Jardiance] 25 mg PO DAILY #90 tablet Levofloxacin [Levaquin 750 mg Tablet] 750 mg PO DAILY #10 tab Insulin Aspart [Novolog Flexpen] 5 unit SUBCUT ACSUPPER #1 pen Semaglutide [Rybelsus] 3 mg PO DAILY #30 tablet Home Medications: Amlodipine Besylate [Norvasc 10 mg Tablet] 10 mg PO DAILY #90 tablet 06/04/18 Pravastatin Sodium [Pravachol] 20 mg PO DAILY #90 tablet 06/04/18 Insulin Glargine,Hum.rec.anlog [Lantus Solostar] 38 unit SQ DAILY 03/28/20 Bromfenac Sodium [Prolensa] 1 drop OU DAILY 06/27/20 Difluprednate [Durezol] 1 drop OU BID 06/27/20 Gabapentin 300 mg PO TID 06/27/20 Empagliflozin [Jardiance] 25 mg PO DAILY #90 tablet 06/30/20 Insulin Aspart [Novolog Flexpen] 5 unit SUBCUT ACSUPPER #1 pen 06/30/20 Levofloxacin [Levaquin 750 mg Tablet] 750 mg PO DAILY #10 tab 06/30/20 Semaglutide [Rybelsus] 3 mg PO DAILY #30 tablet 06/30/20 History of Present Illiness History of Present Illness: ALMAZ ALVARADO is a 60 year old female, She has type 2 diabetes mellitus complicated with neuropathy, retinopathy poorly controlled, the hemoglobin A1c is 11, she was supposed to be on GLP-1 receptor agonist, SGLT 1 inhibitor but the medication that was reconciled by the pharmacist did not include all his medications. She came to the office this morning for evaluation of swelling of the right foot, in the office on evaluation she was found to have abscess of the foot the fourth and fifth toes and in jeopardy of amputation. 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 Hospital Course Hospital Course: Patient was admitted for the management of abscess and cellulitis of the right foot, she was seen by the surgeon the small toe of the right foot was amputated. She was treated empirically with IV antibiotic, vancomycin and Zosyn.She was seen by the surgeon a wound VAC was recommended Physical Exam Vital Signs: Temp Pulse Resp BP Pulse Ox 100.0 F 90 16 133/59 H 100 06/30/20 18:04 06/30/20 18:04 06/30/20 18:04 06/30/20 18:04 06/30/20 18:04 Intake & Output 06/29/20 06/30/20 07/01/20 06:59 06:59 06:59 Intake Total 1100 1270 260 Output Total 600 Balance 500 1270 260 Weight 92.3 kg 90.8 kg General appearance: PRESENT: no acute distress Eye exam: PRESENT: PERRLA Respiratory exam: PRESENT: clear to auscultation kat Cardiovascular exam: PRESENT: +S1, +S2 GI/Abdominal exam: PRESENT: soft Neurological exam: PRESENT: alert, CN II-XII grossly intact Results Laboratory Results: WBC 7.8 10^3/uL (4.0-10.5) 06/27/20 13:00 RBC 3.89 10^6/uL (3.72-5.28) 06/27/20 13:00 Hgb 10.8 g/dL (12.0-15.5) L 06/27/20 13:00 Hct 31.9 % (36.0-47.0) L 06/27/20 13:00 MCV 82 fl (80-97) 06/27/20 13:00 MCH 27.8 pg (27.0-33.4) 06/27/20 13:00 MCHC 33.9 g/dL (32.0-36.0) 06/27/20 13:00 RDW 12.7 % (11.5-14.0) 06/27/20 13:00 Plt Count 430 10^3/uL (150-450) 06/27/20 13:00 Sodium 138.9 mmol/L (137-145) 06/27/20 13:00 Potassium 3.6 mmol/L (3.6-5.0) 06/27/20 13:00 Chloride 101 mmol/L (98-107) 06/27/20 13:00 Carbon Dioxide 31 mmol/L (22-30) H 06/27/20 13:00 Anion Gap 7 (5-19) 06/27/20 13:00 BUN 13 mg/dL (7-20) 06/27/20 13:00 Creatinine 0.69 mg/dL (0.52-1.25) 06/27/20 13:00 Est GFR ( Amer) > 60 (>60) 06/27/20 13:00 Est GFR (MDRD) Non-Af > 60 (>60) 06/27/20 13:00 Glucose 248 mg/dL (75-110) H 06/27/20 13:00 POC Glucose 94 mg/dL (70-110) 06/30/20 16:01 Hemoglobin A1c % 11.5 % (4.7-6.0) H 06/27/20 13:00 Calcium 9.0 mg/dL (8.4-10.2) 06/27/20 13:00 Total Bilirubin 0.8 mg/dL (0.2-1.3) 06/27/20 13:00 Direct Bilirubin 0.3 mg/dL (0.0-0.4) 06/27/20 13:00 Neonat Total Bilirubin Not Reportable 06/27/20 13:00 Neonat Direct Bilirubin Not Reportable 06/27/20 13:00 Neonat Indirect Bili Not Reportable 06/27/20 13:00 AST 20 U/L (14-36) 06/27/20 13:00 ALT 17 U/L (<35) 06/27/20 13:00 Alkaline Phosphatase 109 U/L (38-126) 06/27/20 13:00 Total Protein 6.8 g/dL (6.3-8.2) 06/27/20 13:00 Albumin 3.5 g/dL (3.5-5.0) 06/27/20 13:00 TSH 1.27 uIU/mL (0.47-4.68) 06/27/20 13:00 Free T4 1.19 ng/dL (0.78-2.19) 06/27/20 13:00 Urine Color YELLOW 06/27/20 18:50 Urine Appearance SLIGHTLY-CLOUDY 06/27/20 18:50 Urine pH 6.0 (5.0-9.0) 06/27/20 18:50 Ur Specific [place] 1.023 06/27/20 18:50 Urine Protein NEGATIVE mg/dL (NEGATIVE) 06/27/20 18:50 Urine Glucose (UA) >=500 mg/dL (NEGATIVE) H 06/27/20 18:50 Urine Ketones NEGATIVE mg/dL (NEGATIVE) 06/27/20 18:50 Urine Blood SMALL (NEGATIVE) H 06/27/20 18:50 Urine Nitrite NEGATIVE (NEGATIVE) 06/27/20 18:50 Urine Bilirubin NEGATIVE (NEGATIVE) 06/27/20 18:50 Urine Urobilinogen NEGATIVE mg/dL (<2.0) 06/27/20 18:50 Ur Leukocyte Esterase NEGATIVE (NEGATIVE) 06/27/20 18:50 Urine WBC (Auto) 1 /HPF 06/27/20 18:50 Urine RBC (Auto) 1 /HPF 06/27/20 18:50 U Hyaline Cast (Auto) 1 /LPF 06/27/20 18:50 Urine Bacteria (Auto) TRACE /HPF 06/27/20 18:50 Squamous Epi Cells Auto 4 /HPF 06/27/20 18:50 Urine Mucus (Auto) RARE /LPF 06/27/20 18:50 Urine Ascorbic Acid NEGATIVE (NEGATIVE) 06/27/20 18:50 COVID-19 Source See comment 06/27/20 13:00 COVID-19 (PAVEL) Not Detected (Not Detect) 06/27/20 13:00 Impressions: Chest X-Ray 06/27/20 00:00 IMPRESSION: No acute cardiopulmonary process. Stroke Is this a Stroke Patient?: No Acute Heart Failure Is this a Heart Failure Patient?: No
== END 2020-06-30 18:45 | disposition home or self-care (01) | DRG 256 ==
LOC: ER 11:05 → EDSTATUS 11:50 → 3N 11:53 → 3W 06-29 16:59
PROVIDERS: ADMIT Internal Medicine; ATTEND Internal Medicine
PROC: 0Y6X0Z0 Detachment at Right 5th Toe, Complete, Open Approach (ICD-10-PCS; principal; 2020-06-27)
DX: E11.52 Type 2 diabetes mellitus with diabetic peripheral angiopathy with gangrene (principal); I96 Gangrene, not elsewhere classified; L02.611 Cutaneous abscess of right foot; L03.115 Cellulitis of right lower limb; E11.319 Type 2 diabetes mellitus with unspecified diabetic retinopathy without macular edema; E11.65 Type 2 diabetes mellitus with hyperglycemia; H54.8 Legal blindness, as defined in USA; E78.5 Hyperlipidemia, unspecified; I10 Essential (primary) hypertension; E11.42 Type 2 diabetes mellitus with diabetic polyneuropathy; E11.628 Type 2 diabetes mellitus with other skin complications; Z03.818 Encounter for observation for suspected exposure to other biological agents ruled out; Z79.899 Other long term (current) drug therapy; Z79.4 Long term (current) use of insulin; Z91.19 Patient's noncompliance with other medical treatment and regimen
CPT/HCPCS: 1480; 36415; 71045; 80048; 80076; 81001; 82962; 83036; 84439; 84443; 85027; 87040; 87635; 88305; 88311; C9803; J1815; J2250; J2405; J2543; J2704; J3010; J3370; J3490; J7050; J7060

== ENCOUNTER → 2020-09-13 | Outpatient (CLI) | payer MEDICARE, MEDICAID ==
--- NOTE | 2020-09-13 16:29 | RADIOLOGY REPORT (SQ) ---
EXAM DESCRIPTION: PHYSIO ARTERIAL LTD COMPLETE DATE/TIME: 09/13/2020 3:41 pm REASON FOR STUDY: RT FOOT ULCER L97.512 NON-PRS CHRONIC ULCER OTH PRT RIGHT FOOT W FAT LAYER FINDINGS: Please see combined report for performance of procedure and radiologic supervision and int erpretation. IMPRESSION: Please see combined report for performance of procedure and radiologic supervision and i nterpretation. Reading location - IP/workstation name: [email or web address]
--- NOTE | 2020-09-13 16:29 | RADIOLOGY REPORT (SQ) ---
EXAM DESCRIPTION: ARTERIAL LOWER EXTREM BILAT IMAGES COMPLETED DATE/TIME: 09/13/2020 3:41 pm REASON FOR STUDY: RT FOOT ULCER L97.512 NON-PRS CHRONIC ULCER OTH PRT RIGHT FOOT W FAT LAYER COMPARISON: None. TECHNIQUE: Dynamic and static ohara scale and color images acquired of the lower extremity arteries. Additional selected spectral images recorded. ABIs recorded. LIMITATIONS: None. FINDINGS: RIGHT LEG: ABIS: Normal, over 1.0. INFLOW ARTERIES: Not imaged. FEMORAL ARTERIES:Multiphasic waveforms. Normal, no velocity elevation to suggest focal stenosis. Norm al color Doppler evaluation. No aneurysm. POPLITEAL ARTERY:Multiphasic waveforms. Normal, no velocity elevation to suggest focal stenosis. Norm al color Doppler evaluation. No aneurysm. PATENT TIBIOPERONEAL TRUNK AND 3 VESSEL RUNOFF: Three-vessel runoff. The distal posterior tibial art andrés is occluded. TBI: Not performed. OTHER: No other significant finding. LEFT LEG: ABIS: Normal, over 1.0. INFLOW ARTERIES: Not imaged. FEMORAL ARTERIES:Multiphasic waveforms. Normal, no velocity elevation to suggest focal stenosis. Norm al color Doppler evaluation. No aneurysm. POPLITEAL ARTERY:Multiphasic waveforms. Normal, no velocity elevation to suggest focal stenosis. Norm al color Doppler evaluation. No aneurysm. PATENT TIBIOPERONEAL TRUNK AND 3 VESSEL RUNOFF: Yes. TBI: Not performed. OTHER: No other significant finding. IMPRESSION: Small vessel disease on the right. No significant stenosis above the knee. COMMENT: [facility] NORMAL: Greater than 1.0 MINIMAL DISEASE: 0.9 to 1.0 CLAUDICATION: 0.5 to 0.9 SEVERE ARTERIAL DISEASE: Less than 0.5 [facility] NORMAL: Greater than 1.0 (1.2 If Heavy Calcifications) NORMAL TO MILD ISCHEMIA: 0.8 to 1.0 MODERATE ISCHEMIA: 0.4 to 0.8 SEVERE ISCHEMIA: Less than 0.4 TECHNICAL DOCUMENTATION: JOB ID: [id number] [employer]- All Rights Reserved Reading location - IP/workstation name: [email or web address]
== END ==
LOC: SP 12:51
PROVIDERS: ATTEND Preventive Medicine Undersea and Hyperbaric Medicine
DX: L97.512 Non-pressure chronic ulcer of other part of right foot with fat layer exposed (principal)
CPT/HCPCS: 93922; 93925

== ENCOUNTER → 2020-10-06 | Outpatient (CLI) | payer MEDICARE, MEDICAID ==
[2020-10-06 12:06] LABS: ABSOLUTE EOSINOPHILS # (AUTO) 0.1 10^3/uL (0.0-0.6); ABSOLUTE LYMPHOCYTES (AUTO) 1.1 10^3/uL (0.5-4.7); ABSOLUTE MONOCYTES (AUTO) 0.2 10^3/uL (0.1-1.4); ABSOLUTE NEUT (AUTO) 1.8 10^3/uL (1.7-8.2); BASOPHILS % (AUTO) 0.7 % (0-2); EOSINOPHILS % (AUTO) 3.1 % (0-6); HEMATOCRIT 37.1 % (36.0-47.0); HEMOGLOBIN 11.9 g/dL (12.0-15.5); LYMPHOCYTES % (AUTO) 34.5 % (13-45); MEAN CORPUSCULAR HEMOGLOBIN 26.3 pg (27.0-33.4); MEAN CORPUSCULAR HGB CONC 32.2 g/dL (32.0-36.0); MEAN CORPUSCULAR VOLUME 82 fl (80-97); MONOCYTES % (AUTO) 6.4 % (3-13); PLATELET COUNT 270 10^3/uL (150-450); RED BLOOD COUNT 4.54 10^6/uL (3.72-5.28); RED CELL DISTRIBUTION WIDTH 14.4 % (11.5-14.0); SEGMENTED NEUTROPHILS % (AUTO) 55.3 % (42-78); TOTAL CELLS COUNTED % (AUTO) 100 %; WHITE BLOOD COUNT 3.3 10^3/uL (4.0-10.5)
[2020-10-06 12:26] LABS: ALBUMIN 3.9 g/dL (3.5-5.0); ALKALINE PHOSPHATASE 120 U/L (38-126); ANION GAP 8 (5-19); ASPARTATE AMINO TRANSFERASE 68 U/L (14-36); BILIRUBIN,DIRECT 0.3 mg/dL (0.0-0.4); BILIRUBIN,TOTAL 0.6 mg/dL (0.2-1.3); BLOOD UREA NITROGEN 11 mg/dL (7-20); C-REACTIVE PROTEIN 15.2 mg/L (<10.0); CALCIUM 9.2 mg/dL (8.4-10.2); CARBON DIOXIDE 30 mmol/L (22-30); CHLORIDE 101 mmol/L (98-107); GLUCOSE 368 mg/dL (75-110); TOTAL PROTEIN 8.1 g/dL (6.3-8.2)
--- NOTE | 2020-10-06 12:34 | RADIOLOGY REPORT (SQ) ---
EXAM DESCRIPTION: FOOT RIGHT COMPLETE IMAGES COMPLETED DATE/TIME: 10/06/2020 11:25 am REASON FOR STUDY: NON-PRS CHRONIC ULCER OTH PRT RIGHT FOOT W FAT LAYER EXPOSED L97.512 NON-PRS HOT [employer]PA[employer]ER SAMINA ULCER OTH PRT RIGHT FOOT W FAT LAYER E11.621 TYPE 2 DIABETES MELLITUS WITH FOOT ULCER COMPARISON: 06/23/2020 NUMBER OF VIEWS: Three views. TECHNIQUE: AP, lateral and oblique radiographic images acquired of the right foot. LIMITATIONS: None. FINDINGS: MINERALIZATION: Normal. BONES: Amputation of the 5th digit from the distal 5th metatarsal. There is irregularity of the dist al most portion of the 5th metatarsal. There is bone destruction in the 4th distal metatarsal and th e 4th proximal phalanx. JOINTS: Neuropathic joints are seen in the midfoot. SOFT TISSUES: No soft tissue swelling. No foreign body. OTHER: No other significant finding. IMPRESSION: The appearance of the 4th distal metatarsal and 4th proximal phalanx concerning for oste omyelitis. Cannot exclude osteomyelitis in the distal 5th metatarsal. Neuropathic joints are presen t in the midfoot. TECHNICAL DOCUMENTATION: JOB ID: [id number] 2010 [employer]- All Rights Reserved Reading location - IP/workstation name: [email or web address]
[2020-10-06 12:59] LABS: ERYTHROCYTE SEDIMENTATION RATE 39 mm/hr (0-30)
== END ==
LOC: RAD 11:08
PROVIDERS: ATTEND Preventive Medicine Undersea and Hyperbaric Medicine
DX: E11.621 Type 2 diabetes mellitus with foot ulcer (principal); L97.512 Non-pressure chronic ulcer of other part of right foot with fat layer exposed; M89.8X7 Other specified disorders of bone, ankle and foot
CPT/HCPCS: 36415; 80053; 83036; 85025; 85652; 86140

== ENCOUNTER → 2020-10-13 | Outpatient (CLI) | payer MEDICARE, MEDICAID ==
[2020-10-13 12:09] LABS: ABSOLUTE EOSINOPHILS # (AUTO) 0.1 10^3/uL (0.0-0.6); ABSOLUTE LYMPHOCYTES (AUTO) 1.2 10^3/uL (0.5-4.7); ABSOLUTE MONOCYTES (AUTO) 0.3 10^3/uL (0.1-1.4); ABSOLUTE NEUT (AUTO) 2.8 10^3/uL (1.7-8.2); BASOPHILS % (AUTO) 0.8 % (0-2); EOSINOPHILS % (AUTO) 2.7 % (0-6); HEMATOCRIT 38.4 % (36.0-47.0); HEMOGLOBIN 12.5 g/dL (12.0-15.5); LYMPHOCYTES % (AUTO) 26.5 % (13-45); MEAN CORPUSCULAR HEMOGLOBIN 26.9 pg (27.0-33.4); MEAN CORPUSCULAR HGB CONC 32.7 g/dL (32.0-36.0); MEAN CORPUSCULAR VOLUME 82 fl (80-97); MONOCYTES % (AUTO) 7.1 % (3-13); PLATELET COUNT 332 10^3/uL (150-450); RED BLOOD COUNT 4.65 10^6/uL (3.72-5.28); RED CELL DISTRIBUTION WIDTH 14.8 % (11.5-14.0); SEGMENTED NEUTROPHILS % (AUTO) 62.9 % (42-78); TOTAL CELLS COUNTED % (AUTO) 100 %; WHITE BLOOD COUNT 4.5 10^3/uL (4.0-10.5)
[2020-10-13 12:29] LABS: ALBUMIN 4.1 g/dL (3.5-5.0); ALKALINE PHOSPHATASE 110 U/L (38-126); ANION GAP 9 (5-19); ASPARTATE AMINO TRANSFERASE 38 U/L (14-36); BILIRUBIN,DIRECT 0.2 mg/dL (0.0-0.4); BILIRUBIN,TOTAL 0.6 mg/dL (0.2-1.3); BLOOD UREA NITROGEN 13 mg/dL (7-20); C-REACTIVE PROTEIN 15.9 mg/L (<10.0); CARBON DIOXIDE 23 mmol/L (22-30); CHLORIDE 107 mmol/L (98-107); GLUCOSE 316 mg/dL (75-110); POTASSIUM 4.3 mmol/L (3.6-5.0); TOTAL PROTEIN 8.3 g/dL (6.3-8.2)
--- NOTE | 2020-10-13 12:31 | RADIOLOGY REPORT (SQ) ---
EXAM DESCRIPTION: FOOT RIGHT 2 VIEWS IMAGES COMPLETED DATE/TIME: 10/13/2020 11:49 am REASON FOR STUDY: (L97.514)NON-PRS CHRONIC ULCER OTH PRT RIGHT FOOT W NECROSIS OF BONE L97.514 NON- PRS CHRONIC ULCER OTH PRT RIGHT FOOT W NECROSIS E11.621 TYPE 2 DIABETES MELLITUS WITH FOOT ULCER COMPARISON: 10/06/2020 NUMBER OF VIEWS: Three views. TECHNIQUE: AP, lateral and oblique radiographic images acquired of the right foot. LIMITATIONS: None. FINDINGS: MINERALIZATION: Normal. BONES: There is amputation of the 5th digit from the head of the 5th metatarsal. In there is bone de struction in the head of the 4th metatarsal. Possible partial resection of the head of the 4th metat arsal. There appears to be bone destruction in the base of the 4th proximal phalanx. JOINTS: There appear to be some Charcot joints in the midfoot. SOFT TISSUES: No soft tissue swelling. No foreign body. OTHER: No other significant finding. IMPRESSION: There are concerns for osteomyelitis involving the head of the 4th metatarsal and in the base of the 4th proximal phalanx. Cannot entirely exclude limited bone destruction in the distal mo st remaining portion of the 5th metatarsal. There does not appear to be significant interval change. TECHNICAL DOCUMENTATION: JOB ID: [id number] 2010 [employer]- All Rights Reserved Reading location - IP/workstation name: [email or web address]
[2020-10-13 12:49] LABS: ERYTHROCYTE SEDIMENTATION RATE 44 mm/hr (0-30)
== END ==
LOC: RAD 11:20
PROVIDERS: ATTEND Preventive Medicine Undersea and Hyperbaric Medicine
DX: E11.621 Type 2 diabetes mellitus with foot ulcer (principal); L97.514 Non-pressure chronic ulcer of other part of right foot with necrosis of bone
CPT/HCPCS: 36415; 80053; 85025; 85652; 86140